=== PATIENT | male | born 1935 | race Caucasian/White ===

== ENCOUNTER 2020-06-22 09:37 | Inpatient (IN) | payer MEDICARE ==
--- NOTE | 2020-06-22 09:48 | ER Document Report ---
ED General - General Chief Complaint: Diarrhea Stated Complaint: DIARRHEA Time Seen by Provider: 06/22/20 09:47 - HPI Notes: 85-year-old male presents with diarrhea and fever. Patient states that he started to feel bad yesterday, he states that he had some vomiting and diarrhea, those have now resolved. He currently denies complaints. He denies shortness of breath or cough. He denies abdominal pain. He received Tylenol with EMS prior to arrival along with 1 L of fluids. Patient somewhat limited historian. - Related Data Allergies/Adverse Reactions: No Known Allergies Allergy (Unverified 12/15/11 11:26) Past Medical History - General Cannot obtain history due to: Altered mental status - Social History Smoking Status: Unknown if Ever Smoked Family History: Reviewed & Not Pertinent - Past Medical History Cardiac Medical History: Reports: Hx Hypertension - METOPROLOL Denies: Hx Heart Attack Pulmonary Medical History: Denies: Hx Asthma Neurological Medical History: Denies: Hx Cerebrovascular Accident, Hx Seizures GI Medical History: Denies: Hx Hepatitis, Hx Hiatal Hernia, Hx Ulcer Infectious Medical History: Denies: Hx Hepatitis Past Surgical History: Reports: Hx Cholecystectomy. Denies: Hx Open Heart Surgery, Hx Pacemaker Review of Systems - Review of Systems -: Yes ROS unobtainable due to patient's medical condition Constitutional: Fever Gastrointestinal: Diarrhea Physical Exam - Vital signs Vitals: Temp Resp Pulse Ox 102.9 F H 28 H 91 L 06/22/20 09:37 06/22/20 09:37 06/22/20 09:37 - General General appearance: Other - Ill-appearing - HEENT Head: Normocephalic, Atraumatic Extraocular movements intact: Yes Pupils: PERRL - Respiratory Respiratory status: No: Labored Chest status: Nontender Breath sounds: Rhonchi - Cardiovascular Rhythm: Tachycardia Heart sounds: Normal auscultation Normal capillary refill: Yes - Abdominal Distension: No distension Bowel sounds: Normal Tenderness: Nontender - Extremities General lower extremity: No: Edema - Neurological Neuro grossly intact: Yes Cognition: Confused Motor strength normal: LUE, RUE, LLE, RLE - Psychological Associated symptoms: Normal affect - Skin Skin Temperature: Warm Course - Re-evaluation Re-evalutation: 06/22/20 10:39 Called patient's daughter and for more information. Patient's daughter states that he had a COVID contact at [employer] a week ago and then 2 weeks prior as well. He has been feeling sick for the past few days. He has had diarrhea described as "losing everything", they have noticed coughing and some wheezing starting Tuesday. He seemed less coherent last night and was worse this morning. Patient's additionally does not feel well. 06/22/20 13:09 CT abdomen has resulted, there is no acute intra-abdominal pathology. However he does have bilateral patchy opacities at the bases. I am still highly suspecting COVID. However have ordered Rocephin and azithromycin for empiric CAP coverage. I briefly took patient off of oxygen, he had desaturations to 88% on room air, I placed him on 6 L and he increased to 92% quickly. I discussed with him need for admission. He is more coherent and alert appearing. He will be admitted under Dr. Martinez. 06/22/20 13:16 Updated daughter on admission - Vital Signs Vital signs: Temp Pulse Resp BP Pulse Ox 99.3 F 23 H 107/70 92 06/22/20 15:26 06/22/20 15:01 06/22/20 15:00 06/22/20 15:01 - Laboratory Result Diagrams: 06/22/20 09:40 06/22/20 09:40 Laboratory results interpreted by me: 06/22/20 06/22/20 06/22/20 09:40 09:40 09:40 RBC 3.71 L Hgb 12.1 L Hct 34.0 L D-Dimer Carbon Dioxide 21 L BUN 34 H Creatinine 1.71 H Est GFR ( Amer) 46 L Est GFR (MDRD) Non-Af 38 L Glucose 156 H Lactic Acid 2.2 H Calcium 8.0 L Magnesium C-Reactive Protein Total Protein 5.9 L Albumin 3.3 L 06/22/20 06/22/20 06/22/20 09:40 09:40 13:25 RBC Hgb Hct D-Dimer 0.98 H Carbon Dioxide BUN Creatinine Est GFR ( Amer) Est GFR (MDRD) Non-Af Glucose Lactic Acid Calcium Magnesium 1.4 L C-Reactive Protein 43.4 H Total Protein Albumin - Diagnostic Test Radiology reviewed: Image reviewed, Reports reviewed - EKG Interpretation by Me Additional EKG results interpreted by me: EKG is interpreted by me. Sinus arrhythmia. Premature atrial complexes. Narrow QRS. QTc within normal limits. Discharge - Discharge Clinical Impression: Suspected COVID-19 virus infection, Hypoxia Bilateral pneumonia Qualifiers: Pneumonia type: due to unspecified organism Lung location: lower lobe of lung Qualified Code(s): J18.9 - Pneumonia, unspecified organism Disposition: ADMITTED INPATIENT Admitting Provider: Juan (Hospitalist) Unit Admitted: Telemetry
[2020-06-22 10:03] LABS: VENOUS BLOOD BASE EXCESS -4.4 mmol/L; VENOUS BLOOD HCO3 20.3 mmol/L (20-32); VENOUS BLOOD PCO2 36.1 mmHg (35-63); VENOUS BLOOD PH 7.37 (7.30-7.42)
[2020-06-22 10:15] LABS: ALBUMIN 3.3 g/dL (3.5-5.0); ALKALINE PHOSPHATASE 60 U/L (38-126); ANION GAP 10 (5-19); ASPARTATE AMINO TRANSFERASE 39 U/L (17-59); BILIRUBIN,DIRECT 0.3 mg/dL (0.0-0.4); BILIRUBIN,TOTAL 0.6 mg/dL (0.2-1.3); BLOOD UREA NITROGEN 34 mg/dL (7-20); CARBON DIOXIDE 21 mmol/L (22-30); CHLORIDE 107 mmol/L (98-107); GLUCOSE 156 mg/dL (75-110); POTASSIUM 3.6 mmol/L (3.6-5.0); TOTAL PROTEIN 5.9 g/dL (6.3-8.2)
[2020-06-22] MEDS ORDERED: RINGERS SOLUTION,LACTATED 1,000 ML IV ONE (10:17)
[2020-06-22 10:19] LABS: INTERNATIONAL RATION (INR) 1.12; PROTHROMBIN TIME 14.6 SEC (11.4-15.4)
[2020-06-22 10:20] LABS: ABSOLUTE LYMPHOCYTES (AUTO) 1.3 10^3/uL (0.5-4.7); ABSOLUTE MONOCYTES (AUTO) 0.5 10^3/uL (0.1-1.4); ABSOLUTE NEUT (AUTO) 5.6 10^3/uL (1.7-8.2); BASOPHILS % (AUTO) 0.2 % (0-2); HEMOGLOBIN 12.1 g/dL (13.5-17.0); LYMPHOCYTES % (AUTO) 17.6 % (13-45); MEAN CORPUSCULAR HEMOGLOBIN 32.5 pg (27.0-33.4); MEAN CORPUSCULAR HGB CONC 35.4 g/dL (32.0-36.0); MEAN CORPUSCULAR VOLUME 92 fl (80-97); MONOCYTES % (AUTO) 6.6 % (3-13); PLATELET COUNT 219 10^3/uL (150-450); RED BLOOD COUNT 3.71 10^6/uL (4.35-5.55); RED CELL DISTRIBUTION WIDTH 13.6 % (11.5-14.0); SEGMENTED NEUTROPHILS % (AUTO) 75.6 % (42-78); TOTAL CELLS COUNTED % (AUTO) 100 %; WHITE BLOOD COUNT 7.4 10^3/uL (4.0-10.5)
--- NOTE | 2020-06-22 10:40 | EKG REPORT ---
SEVERITY:- BORDERLINE ECG - SINUS TACHYCARDIA WITH APC's LOW VOLTAGE IN FRONTAL LEADS : Confirmed by: Anabell Holly MD 22-Jun-2020 10:38:50
--- NOTE | 2020-06-22 10:50 | RADIOLOGY REPORT (SQ) ---
EXAM DESCRIPTION: CHEST SINGLE VIEW IMAGES COMPLETED DATE/TIME: 06/22/2020 10:08 am REASON FOR STUDY: cough COMPARISON: Chest radiograph 09/19/2010 NUMBER OF VIEWS: One view. TECHNIQUE: Single frontal radiographic view of the chest acquired. LIMITATIONS: None. FINDINGS: LUNGS AND PLEURA: There is mild prominence of the pulmonary vasculature, predominantly at the lung bases, and prominent Saul B-lines. Mild increased density in the retrocardiac left lower lobe. No pleural effusion or pneumothorax. MEDIASTINUM AND HILAR STRUCTURES: Cardiac silhouette at the upper limits of normal in size with a tor tuous and calcified thoracic aorta. BONES: No acute findings. HARDWARE: None in the chest. OTHER: No other significant finding. IMPRESSION: Findings likely representing mild pulmonary edema on the basis of congestive heart failu re. A superimposed infectious process at the left lung base would be difficult to exclude. Recommen d radiographic follow-up. TECHNICAL DOCUMENTATION: JOB ID: [id number] 2010 [employer]- All Rights Reserved Reading location - IP/workstation name: [email or web address]
--- NOTE | 2020-06-22 12:17 | RADIOLOGY REPORT (SQ) ---
EXAM DESCRIPTION: CT ABD/PELVIS WITH IV ONLY IMAGES COMPLETED DATE/TIME: 06/22/2020 11:43 am REASON FOR STUDY: diarrhea, eval colitis vs diverticulitis COMPARISON: None. TECHNIQUE: CT scan of the abdomen and pelvis performed with intravenous using helical scanning techn ique with dynamic intravenous contrast injection. Images reviewed with lung, soft tissue, and bone wi ndows. Reconstructed coronal and sagittal MPR images reviewed. Delayed images for evaluation of the u rinary system also acquired. All images stored on PACS. All CT scanners at this facility use dose modulation, iterative reconstruction, and/or weight based d osing when appropriate to reduce radiation dose to as low as reasonably achievable (ALARA). [facility]: Dose Right [facility]: CareDose [facility]: Dose Right [facility]: Teradose 4D [facility]: CircleCI CONTRAST TYPE AND DOSE: contrast/concentration: Isovue 300.00 mmol/ml; Total Contrast Delivered: 100 .0 ml; Total Saline Delivered: 72.0 ml RENAL FUNCTION: BUN 34; creatinine 1.71 RADIATION DOSE: CT Rad equipment meets quality standard of care and radiation dose reduction techniq ues were employed. CTDIvol: 17.6 - 20.2 mGy. DLP: 2141 mGy-cm.. LIMITATIONS: None. FINDINGS: LOWER CHEST: Small patchy areas of consolidation in the lung bases bilaterally, left great er than right. LIVER: Normal size. No masses. No dilated ducts. SPLEEN: Normal size. No focal lesions. PANCREAS: No masses. No significant calcifications. No adjacent inflammation or peripancreatic fluid collections. Pancreatic duct not dilated. GALLBLADDER: Surgically absent. ADRENAL GLANDS: No significant masses or asymmetry. RIGHT KIDNEY AND URETER: No solid masses. No significant calcification. No hydronephrosis or hydroure ter. LEFT KIDNEY AND URETER: No solid masses. No significant calcification. No hydronephrosis or hydrouret er. AORTA AND VESSELS: No aneurysm. No dissection. Renal arteries, SMA, celiac without stenosis. Moderat e calcified atherosclerotic plaque. RETROPERITONEUM: No retroperitoneal adenopathy, hemorrhage or masses. BOWEL AND PERITONEAL CAVITY: No obstruction. No visualized masses. No free fluid. Innumerable divert icula are present off the descending and sigmoid colon. No inflammatory changes or thickening of bow el wall. APPENDIX: Not visualized. PELVIS: No significant masses. Normal bladder. No free fluid. ABDOMINAL WALL: No masses. No hernias. BONES: Moderate multilevel degenerative changes are present in the visualized spine with grade 1 ante rolisthesis of L4 on L5 on the basis of facet hypertrophic changes. OTHER: No other significant finding. IMPRESSION: No acute inflammatory changes in the abdomen or pelvis. Colonic diverticulosis without CT evidence of diverticulitis Patchy areas of consolidation at the lung bases which could represent atelectasis, infection, or aspi ration. TECHNICAL DOCUMENTATION: JOB ID: [id number] Quality ID # [id number]: Final reports with documentation of one or more dose reduction techniques (e.g., Au tomated exposure control, adjustment of the mA and/or kV according to patient size, use of iterative reconstruction technique) 2010 [employer]- All Rights Reserved Reading location - IP/workstation name: [email or web address]
[2020-06-22] MEDS ORDERED: AZITHROMYCIN INJ 500 MG VIAL IV ONE ×2 (12:54→18:43)
[2020-06-22] MEDS ORDERED: CEFTRIAXONE 1 GM/D5W RTU 1 GM/50 ML RTUPB IV ONE (12:54)
[2020-06-22 14:01] LABS: APPEARANCE,URINE CLEAR; BILIRUBIN,URINE NEGATIVE (NEGATIVE); COLOR,URINE YELLOW; GLUCOSE, URINE NEGATIVE (NEGATIVE); KETONES,URINE NEGATIVE (NEGATIVE); PROTEIN,URINE 30 mg/dL (NEGATIVE); URINE SPECIFIC GRAVITY 1.053; UROBILINOGEN,URINE NEGATIVE mg/dL (<2.0)
[2020-06-22 14:09] LABS: C-REACTIVE PROTEIN 43.4 mg/L (<10.0)
[2020-06-22] MEDS ORDERED: GUAIFENESIN SYRP 200 MG/10 ML UDC PO PRN (14:12)
[2020-06-22] MEDS ORDERED: ALBUTEROL SULFATE 0.083% NEB 2.5 MG/3 ML AMPUL NEB PRN (14:12)
--- NOTE | 2020-06-22 14:27 | PDOC H&P ---
History of Present Illness Admission Date/PCP: 06/22/20 13:35 PARADISE GAINES MD Patient complains of: diarrhea History of Present Illness: BENJI BENITO is a 85 year old male the past medical history significant for hypertension, hyperlipidemia, GERD, depression who presented to the emergency department today by EMS due to report at home of confusion, fatigue, and multiple episodes of diarrhea. Evaluation in the emergency department revealed Fever (102.9), tachycardia (109), tachypnea (28), hypoxia on room air, mild anemia, mildly elevated d- dimer, acute kidney injury (CR 1.71/BUN 34), elevated lactic acid (2.2), negative urinalysis. Chest x-ray showed mild pulmonary edema with superimposed infectious process at the bases difficult to exclude. Abdominal pelvic CT found colonic diverticulosis without diverticulitis and patchy areas of consolidation of the lung bases. Patient was provided IV fluids, azithromycin and ceftriaxone, and referred to the hospitalist service for further evaluation management of the above-stated complaints and findings. Past Medical History Cardiac Medical History: Reports: Hyperlipidema, Hypertension Denies: Myocardial Infarction Pulmonary Medical History: Denies: Asthma Neurological Medical History: Denies: Seizures GI Medical History: Reports: Gastroesophageal Reflux Disease Denies: Hepatitis, Hiatal Hernia Psychiatric Medical History: Reports: Depression Hematology: Denies: Anemia, Sickle Cell Disease Past Surgical History Past Surgical History: Reports: Cholecystectomy Denies: Pacemaker Social History Information Source: [facility] Records Lives with: Spouse/Significant other Smoking Status: Unknown if Ever Smoked Family History Family History: Unable to obtain r/t mentation Parental Family History Reviewed: No Children Family History Reviewed: No Sibling(s) Family History Reviewed.: No Medication/Allergy Home Medications: Aspirin [Ecotrin 81 mg EC Tablet] 81 mg PO DAILY 12/15/11 Atorvastatin Calcium [Lipitor 40 Mg Tablet] 40 mg PO QHS 12/15/11 Bupropion HCl [Wellbutrin 100 Mg Tablet] 100 mg PO DAILY 12/15/11 Metoprolol Succinate [Toprol-Xl 50 Mg Tab.Sr] 50 mg PO 12/15/11 Omeprazole [Prilosec] 20 mg PO DAILY 12/15/11 Zolpidem Tartrate [Ambien] 10 mg PO PRN 12/15/11 Allergies/Adverse Reactions: No Known Allergies Allergy (Unverified 12/15/11 11:26) Review of Systems ROS unobtainable: Due to mental status Physical Exam Vital Signs: Temp Pulse Resp BP Pulse Ox 102.9 F H 21 H 105/59 L 95 06/22/20 09:37 06/22/20 10:01 06/22/20 10:01 06/22/20 10:01 Intake & Output 06/21/20 06/22/20 06/23/20 06:59 06:59 06:59 Intake Total 1000 Balance 1000 Weight 99.74 kg General appearance: PRESENT: no acute distress, disheveled, obese, well- developed, well-nourished, other - Acutely ill-appearing Head exam: PRESENT: atraumatic, normocephalic Eye exam: PRESENT: conjunctiva pink, EOMI, PERRLA. ABSENT: scleral icterus Mouth exam: PRESENT: dry mucosa, tongue midline Respiratory exam: PRESENT: clear to auscultation jeni, symmetrical, tachypnea, unlabored, other - Supplemental oxygen by nasal cannula. ABSENT: rales, rhonchi , wheezes Cardiovascular exam: PRESENT: RRR, +S1, +S2, tachycardia. ABSENT: diastolic murmur, rubs, systolic murmur Pulses: PRESENT: normal dorsalis pedis pul Vascular exam: PRESENT: normal capillary refill GI/Abdominal exam: PRESENT: hyperactive bowel sounds, soft. ABSENT: distended, guarding, mass, organolmegaly, rebound, tenderness Extremities exam: PRESENT: full ROM - Moves all extremities spontaneously. ABSENT: calf tenderness, clubbing, pedal edema Neurological exam: PRESENT: alert, awake, oriented to person, oriented to place, CN II-XII grossly intact, other - Intermittent periods of increased confusion, impulsivity, and poor safety awareness.. ABSENT: motor sensory deficit Skin exam: PRESENT: dry, intact, warm. ABSENT: cyanosis, rash Results Laboratory Results: 06/22/20 09:40 06/22/20 09:40 06/22/20 06/22/20 06/22/20 09:40 09:40 09:40 WBC 7.4 RBC 3.71 L Hgb 12.1 L Hct 34.0 L MCV 92 MCH 32.5 MCHC 35.4 RDW 13.6 Plt Count 219 Seg Neutrophils % 75.6 VBG pH VBG pCO2 VBG HCO3 VBG Base Excess Sodium 138.3 Potassium 3.6 Chloride 107 Carbon Dioxide 21 L Anion Gap 10 BUN 34 H Creatinine 1.71 H Est GFR ( Amer) 46 L Glucose 156 H Lactic Acid 2.2 H Calcium 8.0 L Magnesium Total Bilirubin 0.6 AST 39 Alkaline Phosphatase 60 Total Protein 5.9 L Albumin 3.3 L Urine Color Urine Appearance Urine pH Ur Specific [place] Urine Protein Urine Glucose (UA) Urine Ketones Urine Blood Urine RBC (Auto) 06/22/20 06/22/20 06/22/20 09:40 09:40 13:25 WBC RBC Hgb Hct MCV MCH MCHC RDW Plt Count Seg Neutrophils % VBG pH 7.37 VBG pCO2 36.1 VBG HCO3 20.3 VBG Base Excess -4.4 Sodium Potassium Chloride Carbon Dioxide Anion Gap BUN Creatinine Est GFR ( Amer) Glucose Lactic Acid 1.7 Calcium Magnesium 1.4 L Total Bilirubin AST Alkaline Phosphatase Total Protein Albumin Urine Color Urine Appearance Urine pH Ur Specific [place] Urine Protein Urine Glucose (UA) Urine Ketones Urine Blood Urine RBC (Auto) 06/22/20 13:35 WBC RBC Hgb Hct MCV MCH MCHC RDW Plt Count Seg Neutrophils % VBG pH VBG pCO2 VBG HCO3 VBG Base Excess Sodium Potassium Chloride Carbon Dioxide Anion Gap BUN Creatinine Est GFR ( Amer) Glucose Lactic Acid Calcium Magnesium Total Bilirubin AST Alkaline Phosphatase Total Protein Albumin Urine Color YELLOW Urine Appearance CLEAR Urine pH 5.0 Ur Specific [place] 1.053 Urine Protein 30 H Urine Glucose (UA) NEGATIVE Urine Ketones NEGATIVE Urine Blood SMALL H Urine RBC (Auto) 1 Impressions: Chest X-Ray 06/22/20 09:39 IMPRESSION: Findings likely representing mild pulmonary edema on the basis of congestive heart failure. A superimposed infectious process at the left lung base would be difficult to exclude. Recommend radiographic follow-up. Abdomen/Pelvis CT 06/22/20 10:16 IMPRESSION: No acute inflammatory changes in the abdomen or pelvis. Colonic diverticulosis without CT evidence of diverticulitis Patchy areas of consolidation at the lung bases which could represent atelectasis, infection, or aspiration. Assessment and Plan - Diagnosis (1) Sepsis Qualifiers: Sepsis type: sepsis due to unspecified organism Sepsis acute organ dysfunction status: with acute organ dysfunction Severe sepsis acute organ dysfunction type: acute renal failure Severe sepsis shock status: without septic shock Is this a current diagnosis for this admission?: Yes Plan: Patient presented to the emergency department, with sepsis, due to bilateral pneumonia, present on arrival, evidenced by acute encephalopathy, acute kidney injury elevated lactic acid, fever, tachycardia, tachypnea, hypoxia. Chest CT revealed bibasilar consolidation consistent with pneumonia. Blood, urine, stool cultures pending. Patient is admitted to [facility], on continuous cardiac telemetry and pulse oximetry. He is empirically placed on antibiotics for treatment of a community-acquired pneumonia; start azithromycin and ceftriaxone. He is receiving IV fluid bolus and is placed on generous IV fluids. (2) Bilateral pneumonia Qualifiers: Pneumonia type: due to unspecified organism Lung location: lower lobe of lung Qualified Code(s): J18.9 - Pneumonia, unspecified organism Is this a current diagnosis for this admission?: Yes Plan: Blood cultures pending. Sputum cultures pending COVID pending Patient is provided supplemental oxygen as needed maintain saturations greater than 89%. Patient is empirically placed on IV azithromycin and ceftriaxone Scheduled and as needed nebulizer treatments. He is placed on Robitussin as needed. Pulmonary toilet is encouraged with incentive spirometer, flutter valve, early ambulation. (3) Diarrhea Qualifiers: Diarrhea type: unspecified type Qualified Code(s): R19.7 - Diarrhea, unspecified Is this a current diagnosis for this admission?: Yes Plan: Blood and stool cultures pending. C. difficile negative. COVID pending. Fecal management system due to copious amounts of liquid stool incontinence in, currently, encephalopathic patient. (4) Suspected COVID-19 virus infection Is this a current diagnosis for this admission?: Yes Plan: We will obtain COVID testing. D-dimer is slightly elevated; will start full dose Lovenox. CRP minimally elevated to 43, LDH and ferritin are low. Start zinc, vitamin D, vitamin C, and melatonin supplementation. Encourage pulmonary toilet. Isolation precautions. Remaining management as above. (5) Acute metabolic encephalopathy Is this a current diagnosis for this admission?: Yes Plan: Multifactorial; secondary to all of the above. Supportive care. (6) Hyperlipemia Is this a current diagnosis for this admission?: Yes Plan: Cardiac diet. Continue home dose statin therapy. (7) Hypertension Is this a current diagnosis for this admission?: Yes Plan: Blood pressures are actually soft at the moment. Cardiac diet. Resume home dose metoprolol once indicated. - Time Time Spent with patient: 35 or more minutes Medications reviewed and adjusted accordingly: Yes Anticipated Discharge Disposition: Home with Home Health Anticipated Discharge Timeframe: >72 hrs - Inpatient Certification Based on my medical assessment, after consideration of the patient's comorbidities, presenting symptoms, or acuity I expect that the services needed warrant INPATIENT care.: Yes I certify that my determination is in accordance with my understanding of Medicare's requirements for reasonable and necessary INPATIENT services [42 CFR 412.3e].: Yes Medical Necessity: Need Close Monitoring Due to Risk of Patient Decompensation, Need For IV Fluids, Need For Continuous Telemetry Monitoring, Need for Nebulizer Therapy and Monitoring of Response, Need for IV Antibiotics, Risk of Complication if Not Cared For in Hospital
[2020-06-22 15:07] LABS: C DIFFICILE GDH NEGATIVE (NEGATIVE)
[2020-06-22] MEDS: ASCORBIC ACID 500 MG TABLET PO SCH (18:46)
[2020-06-22] MEDS: NORMAL SALINE 1000 ML 1,000 ML IV PRN (19:31)
[2020-06-22] MEDS: ALBUTEROL SULFATE 0.083% NEB 2.5 MG/3 ML AMPUL NEB SCH (20:43)
[2020-06-22] MEDS: ATORVASTATIN CALCIUM 40 MG TABLET PO SCH (21:27)
[2020-06-22] MEDS: MELATONIN 3 MG TABLET PO SCH (21:27)
[2020-06-22] MEDS ORDERED: HEPARIN SOD (PORCINE) 5,000 UNIT/ML 1 ML VIAL SUBCUT SCH (22:00)
[2020-06-23] MEDS: ALBUTEROL SULFATE 0.083% NEB 2.5 MG/3 ML AMPUL NEB SCH ×4 (01:19→20:25)
[2020-06-23] MEDS: ACETAMINOPHEN 325 MG TABLET PO PRN ×2 (03:51→21:52)
[2020-06-23 04:26] LABS: HEMATOCRIT 34.2 % (37.9-51.0); MEAN CORPUSCULAR HEMOGLOBIN 32.1 pg (27.0-33.4); MEAN CORPUSCULAR HGB CONC 35.1 g/dL (32.0-36.0); MEAN CORPUSCULAR VOLUME 91 fl (80-97); PLATELET COUNT 196 10^3/uL (150-450); RED BLOOD COUNT 3.74 10^6/uL (4.35-5.55); RED CELL DISTRIBUTION WIDTH 13.6 % (11.5-14.0)
[2020-06-23 04:52] LABS: ANION GAP 12 (5-19); BLOOD UREA NITROGEN 33 mg/dL (7-20); CALCIUM 7.8 mg/dL (8.4-10.2); CARBON DIOXIDE 21 mmol/L (22-30); CHLORIDE 105 mmol/L (98-107); GLUCOSE 95 mg/dL (75-110)
[2020-06-23 05:05] LABS: POTASSIUM 3.4 mmol/L (3.6-5.0)
[2020-06-23] MEDS: PANTOPRAZOLE SODIUM 40 MG TABLET.DR PO SCH (05:05)
[2020-06-23] MEDS: ASCORBIC ACID 500 MG TABLET PO SCH ×2 (09:37→17:14)
[2020-06-23] MEDS: ZINC SULFATE 220 MG CAPSULE PO SCH (09:37)
[2020-06-23] MEDS: CHOLECALCIFEROL (D3) 400 UNIT TABLET PO SCH (09:37)
[2020-06-23] MEDS: CEFTRIAXONE 1 GM/D5W RTU 1 GM/50 ML RTUPB IV SCH (09:37)
[2020-06-23] MEDS: NORMAL SALINE 1000 ML 1,000 ML IV PRN (09:43)
[2020-06-23] MEDS: AZITHROMYCIN 500 MG in DEXTROSE 5%-WATER 250 ML IV SCH (12:21)
--- NOTE | 2020-06-23 19:19 | PDOC PROGRESS REPORT ---
Subjective Progress Note for:: 06/23/20 Subjective:: BENJI BENITO is a 85 year old male the past medical history significant for hypertension, hyperlipidemia, GERD, depression who was admitted 06/22/2020 with Sepsis secondary to bilateral pneumonia with diarrhea and suspected COVID virus infection. Patient was seen on afternoon rounds. He is found resting in bed, comfortably, on supplemental oxygen. Per nursing, he is required increased oxygen support today though remains comfortably on 3 L/min. The patient continues to be encephalopathic, oriented to self only. He is able to talk about his and his daughter clearly though he is confused with all other questions. He does continue to pick at sheets and wants, however, is less agitated and impulsive than yesterday. Continues to wear mittens. Patient states he is feeling well and denies all symptoms. He does appear to be comfortable and is not noted to be in any acute distress at this time. No concerns per nursing. Reason For Visit: SEPSIS,COVID PUI Physical Exam Vital Signs: Temp Pulse Resp BP Pulse Ox 98.9 F 99 18 131/68 H 95 06/23/20 12:54 06/23/20 14:00 06/23/20 14:00 06/23/20 12:54 06/23/20 14:21 Pulse Oximeter Continuous Start: 06/22/20 14:12 Freq: RTQ4 Status: Active Protocol: Document 06/23/20 14:21 [facility] (Rec: 06/23/20 14:34 [facility] [id number]) Pulse Oximetry Assessment Oxygen Saturation (92-100) 95 Oxygen Flow Rate (L/min) 2 Oxygen Delivery Method Nasal Cannula Equipment Usage Equipment Standby Continuous SpO2 Machine # - Intake & Output 06/22/20 06/23/20 06/24/20 06:59 06:59 06:59 Intake Total 2310 300 Output Total 625 700 Balance 1685 -400 Weight 100.1 kg 100.1 kg General appearance: PRESENT: no acute distress, well-developed, well-nourished, other - Overweight Head exam: PRESENT: atraumatic, normocephalic Eye exam: PRESENT: conjunctiva pink, EOMI, PERRLA. ABSENT: scleral icterus Mouth exam: PRESENT: dry mucosa, tongue midline Respiratory exam: PRESENT: clear to auscultation jeni, symmetrical, unlabored, other - Supplemental oxygen. ABSENT: rales, rhonchi, tachypnea, wheezes Cardiovascular exam: PRESENT: RRR. ABSENT: diastolic murmur, rubs, systolic murmur Pulses: PRESENT: normal dorsalis pedis pul Vascular exam: PRESENT: normal capillary refill GI/Abdominal exam: PRESENT: hyperactive bowel sounds, soft, other. ABSENT: distended, guarding, mass, organolmegaly, rebound, tenderness Rectal exam: PRESENT: deferred, other - Copious amounts of diarrhea; rectal tube in place. Gentrourinary exam: PRESENT: indwelling catheter Extremities exam: PRESENT: full ROM. ABSENT: calf tenderness, clubbing, pedal edema Neurological exam: PRESENT: alert, awake, oriented to person, CN II-XII grossly intact, other - Pleasantly confused; conversational and socially appropriate. ABSENT: motor sensory deficit Psychiatric exam: PRESENT: appropriate affect, normal mood. ABSENT: homicidal ideation, suicidal ideation Skin exam: PRESENT: dry, intact, warm. ABSENT: cyanosis, rash Results Laboratory Results: 06/23/20 03:25 06/23/20 03:25 06/23/20 06/23/20 03:25 03:25 WBC 6.0 RBC 3.74 L Hgb 12.0 L Hct 34.2 L MCV 91 MCH 32.1 MCHC 35.1 RDW 13.6 Plt Count 196 Sodium 138.2 Potassium 3.4 L Chloride 105 Carbon Dioxide 21 L Anion Gap 12 BUN 33 H Creatinine 1.58 H Est GFR ( Amer) 51 L Glucose 95 Calcium 7.8 L Impressions: Chest X-Ray 06/22/20 09:39 IMPRESSION: Findings likely representing mild pulmonary edema on the basis of congestive heart failure. A superimposed infectious process at the left lung base would be difficult to exclude. Recommend radiographic follow-up. Abdomen/Pelvis CT 06/22/20 10:16 IMPRESSION: No acute inflammatory changes in the abdomen or pelvis. Colonic diverticulosis without CT evidence of diverticulitis Patchy areas of consolidation at the lung bases which could represent atelectasis, infection, or aspiration. Assessment and Plan - Diagnosis (1) Sepsis Qualifiers: Sepsis type: sepsis due to unspecified organism Sepsis acute organ dysfunction status: with acute organ dysfunction Severe sepsis acute organ dysfunction type: acute renal failure Severe sepsis shock status: without septic shock Is this a current diagnosis for this admission?: Yes Plan: Improved; fever 101 overnight, heart rate and blood pressure improved, WBC is normal, lactic acidosis has resolved. Continues to be encephalopathic with an acute kidney injury. Patient presented to the emergency department, with sepsis, due to bilateral pneumonia, present on arrival, evidenced by acute encephalopathy, acute kidney injury elevated lactic acid, fever, tachycardia, tachypnea, hypoxia. Chest CT revealed bibasilar consolidation consistent with pneumonia. Blood cultures with coag negative staph in 1 of 4 bottles. Urine culture has no growth at 1 day. Stool cultures pending. Patient is admitted to [facility], on continuous cardiac telemetry and pulse oximetry. He is empirically placed on antibiotics for treatment of a community-acquired pneumonia; continue azithromycin and ceftriaxone. Day #2 He is receiving IV fluid bolus and is placed on generous IV fluids. (2) Bilateral pneumonia Qualifiers: Pneumonia type: due to unspecified organism Lung location: lower lobe of lung Qualified Code(s): J18.9 - Pneumonia, unspecified organism Is this a current diagnosis for this admission?: Yes Plan: Cultures as above COVID pending Legionella pending Patient is provided supplemental oxygen as needed maintain saturations greater than 89%. Patient is empirically placed on IV azithromycin and ceftriaxone Scheduled and as needed nebulizer treatments. He is placed on Robitussin as needed. Pulmonary toilet is encouraged with incentive spirometer, flutter valve, early ambulation. (3) Diarrhea Qualifiers: Diarrhea type: unspecified type Qualified Code(s): R19.7 - Diarrhea, unspecified Is this a current diagnosis for this admission?: Yes Plan: Cultures as above C. difficile negative. COVID pending. Fecal management system due to copious amounts of liquid stool incontinence in, currently, encephalopathic patient. (4) Suspected COVID-19 virus infection Is this a current diagnosis for this admission?: Yes Plan: We will obtain COVID testing. D-dimer is slightly elevated; will start full dose Lovenox. CRP minimally elevated to 43, LDH and ferritin are low. Start zinc, vitamin D, vitamin C, and melatonin supplementation. Encourage pulmonary toilet. Isolation precautions. Remaining management as above. (5) Acute metabolic encephalopathy Is this a current diagnosis for this admission?: Yes Plan: Slight improvement today Multifactorial; secondary to all of the above. Supportive care. (6) Hyperlipemia Is this a current diagnosis for this admission?: Yes Plan: Cardiac diet. Continue home dose statin therapy. (7) Hypertension Is this a current diagnosis for this admission?: Yes Plan: Blood pressures are actually soft at the moment. Cardiac diet. Resume home dose metoprolol once indicated. - Time Time Spent with patient: 35 or more minutes Medications reviewed and adjusted accordingly: Yes Anticipated Discharge Disposition: Home with Home Health Anticipated Discharge Timeframe: >72 hrs
[2020-06-23] MEDS ORDERED: ACETAMINOPHEN 325 MG SUPP.RECT PR ONE (20:13)
[2020-06-23] MEDS: ATORVASTATIN CALCIUM 40 MG TABLET PO SCH (21:53)
[2020-06-23] MEDS: MELATONIN 3 MG TABLET PO SCH (21:53)
[2020-06-24] MEDS: ALBUTEROL SULFATE 0.083% NEB 2.5 MG/3 ML AMPUL NEB SCH ×5 (02:07→21:33)
[2020-06-24] MEDS: NORMAL SALINE 1000 ML 1,000 ML IV PRN (05:10)
[2020-06-24 05:11] LABS: ABSOLUTE LYMPHOCYTES (AUTO) 1.8 10^3/uL (0.5-4.7); ABSOLUTE MONOCYTES (AUTO) 0.3 10^3/uL (0.1-1.4); ABSOLUTE NEUT (AUTO) 5.1 10^3/uL (1.7-8.2); BASOPHILS % (AUTO) 0.1 % (0-2); HEMATOCRIT 37.8 % (37.9-51.0); HEMOGLOBIN 13.2 g/dL (13.5-17.0); LYMPHOCYTES % (AUTO) 24.6 % (13-45); MEAN CORPUSCULAR HEMOGLOBIN 31.9 pg (27.0-33.4); MEAN CORPUSCULAR HGB CONC 35.1 g/dL (32.0-36.0); MEAN CORPUSCULAR VOLUME 91 fl (80-97); MONOCYTES % (AUTO) 4.5 % (3-13); PLATELET COUNT 193 10^3/uL (150-450); RED BLOOD COUNT 4.14 10^6/uL (4.35-5.55); RED CELL DISTRIBUTION WIDTH 13.9 % (11.5-14.0); SEGMENTED NEUTROPHILS % (AUTO) 70.8 % (42-78); TOTAL CELLS COUNTED % (AUTO) 100 %; WHITE BLOOD COUNT 7.3 10^3/uL (4.0-10.5)
[2020-06-24] MEDS: ACETAMINOPHEN 325 MG TABLET PO PRN (05:11)
[2020-06-24] MEDS: PANTOPRAZOLE SODIUM 40 MG TABLET.DR PO SCH (05:11)
[2020-06-24 05:40] LABS: ANION GAP 9 (5-19); BLOOD UREA NITROGEN 35 mg/dL (7-20); CALCIUM 7.5 mg/dL (8.4-10.2); CARBON DIOXIDE 21 mmol/L (22-30); CHLORIDE 111 mmol/L (98-107); GLUCOSE 102 mg/dL (75-110); POTASSIUM 3.5 mmol/L (3.6-5.0)
[2020-06-24] MEDS ORDERED: NORMAL SALINE 1000 ML 1,000 ML IV PRN (08:19)
[2020-06-24] MEDS: ZINC SULFATE 220 MG CAPSULE PO SCH (09:03)
[2020-06-24] MEDS: ASCORBIC ACID 500 MG TABLET PO SCH ×2 (09:03→17:30)
[2020-06-24] MEDS: CEFTRIAXONE 1 GM/D5W RTU 1 GM/50 ML RTUPB IV SCH (09:03)
[2020-06-24] MEDS: CHOLECALCIFEROL (D3) 400 UNIT TABLET PO SCH (09:03)
[2020-06-24] MEDS ORDERED: ENOXAPARIN SODIUM INJ 40 MG/0.4 ML DISP.SYRIN SUBCUT SCH ×2 (10:00→12:00)
[2020-06-24] MEDS ORDERED: METOPROLOL TARTRATE PF/INJ 5 MG/5 ML SDV IV ONE ×3 (10:55→11:10)
[2020-06-24 11:28] LABS: ARTERIAL BLOOD BASE EXCESS -5.4 mmol/L; ARTERIAL BLOOD FIO2 100%; ARTERIAL BLOOD H2CO3 0.86 mmol/L (1.05-1.35); ARTERIAL BLOOD HCO3 17.8 mmol/L (20-24); ARTERIAL BLOOD O2 SATURATION 89.1 % (94-98); ARTERIAL BLOOD PCO2 28.5 mmHg (35-45); ARTERIAL BLOOD PH 7.41 (7.35-7.45); ARTERIAL BLOOD PO2 54.1 mmHg (80-100); ARTERIAL BLOOD TOTAL CO2 18.7 mmol/L (23-27)
[2020-06-24] MEDS ORDERED: REMDESIVIR (EUA) 200 MG in NORMAL SALINE 250 ML IV ONE (12:00)
--- NOTE | 2020-06-24 12:48 | PDOC PROGRESS REPORT ---
Subjective Progress Note for:: 06/24/20 Subjective:: Patient is an 85-year-old male with past medical history of hypertension hyperlipidemia depression and GERD who was admitted on June 22 with chief complaints of confusion fatigue and multiple episodes of diarrhea. Chest x-ray showed pneumonia and mild pulmonary edema. Patient was started on ceftriaxone and azithromycin for pneumonia. Fluids for the diarrhea. COVID testing was sent. D2 06/23/20-he continues to require oxygen via nasal cannula 3 L/min. Noted to be confused and agitated at times. Was doing well on minimal oxygen support D3 06/24/20 -patient was seen and examined at bedside. COVID test came back positive .According to the nurse he requires more oxygen today. He was changed to partial nonrebreather mask 14 L/min saturating 94%. He was noted to be on atrial fibrillation RVR, prior history of atrial fibrillation. He was started on dexamethasone 6 mg IV, as well as Remdesivir. Spoke to the and daughter Tasha [phone]. Updated them about the patients status and poor prognosis. The is the surrogate decision maker and they stated that for now they want him to remain full code but also stated that they do not want him to suffer if with no chance of recovery. Reason For Visit: SEPSIS,COVID PUI Physical Exam Vital Signs: Temp Pulse Resp BP Pulse Ox 98.4 F 91 24 H 109/55 L 89 L 06/24/20 07:46 06/24/20 09:15 06/24/20 09:15 06/24/20 03:17 06/24/20 09:15 Pulse Oximeter Continuous Start: 06/22/20 14:12 Freq: RTQ4 Status: Active Protocol: Document 06/24/20 09:15 [facility] (Rec: 06/24/20 09:47 [facility] [id number]) Additional RT Notes Other pt on nursing continous pulse oximter with tele pack. pt placed on 15 lpm partial rebreather mask. at bedside towards end of rx. Pulse Oximetry Assessment Oxygen Saturation (92-100) 89 Oxygen Flow Rate (L/min) 6 Oxygen Delivery Method Simple Mask Fraction of Inspired Oxygen (FIO2) 44 Equipment Usage Equipment Standby Continuous SpO2 Machine # on nursing monitor Intake & Output 06/23/20 06/24/20 06/25/20 06:59 06:59 06:59 Intake Total 2310 1300 Output Total 625 1700 Balance 1685 -400 Weight 100.1 kg 100 kg General appearance: PRESENT: hard of hearing, other - moderate distress, confused, mild agitation, on 14 L of nonrebreather mask Head exam: PRESENT: atraumatic, normocephalic Eye exam: PRESENT: EOMI, PERRLA Mouth exam: PRESENT: moist Neck exam: PRESENT: full ROM. ABSENT: JVD, lymphadenopathy Respiratory exam: PRESENT: crackles - mid to base, tachypnea - Labored breathing Cardiovascular exam: PRESENT: irregular rhythm, +S1, +S2, tachycardia Pulses: PRESENT: +2 pedal pulses bilateral Vascular exam: PRESENT: normal capillary refill GI/Abdominal exam: PRESENT: normal bowel sounds, soft. ABSENT: guarding, t enderness Extremities exam: PRESENT: full ROM. ABSENT: joint swelling, pedal edema Musculoskeletal exam: PRESENT: full ROM Neurological exam: PRESENT: alert, other - Confused mildly agitated Results Laboratory Results: 06/24/20 04:18 06/24/20 04:18 06/24/20 06/24/20 06/24/20 04:18 04:18 11:10 WBC 7.3 RBC 4.14 L Hgb 13.2 L Hct 37.8 L MCV 91 MCH 31.9 MCHC 35.1 RDW 13.9 Plt Count 193 Seg Neutrophils % 70.8 Carbonic Acid 0.86 L HCO3/H2CO3 Ratio 20:1 ABG pH 7.41 ABG pCO2 28.5 L ABG pO2 54.1 L ABG HCO3 17.8 L ABG O2 Saturation 89.1 L ABG Base Excess -5.4 FiO2 100% Sodium 141.4 Potassium 3.5 L Chloride 111 H Carbon Dioxide 21 L Anion Gap 9 BUN 35 H Creatinine 1.54 H Est GFR ( Amer) 52 L Glucose 102 Calcium 7.5 L 06/22/20 13:35 Catheterized Urine Urine Culture - Final NO GROWTH 2 DAYS 06/22/20 09:40 Blood Blood Culture (PCR) - Final Staphylococcus Species Impressions: Chest X-Ray 06/22/20 09:39 IMPRESSION: Findings likely representing mild pulmonary edema on the basis of congestive heart failure. A superimposed infectious process at the left lung base would be difficult to exclude. Recommend radiographic follow-up. Abdomen/Pelvis CT 06/22/20 10:16 IMPRESSION: No acute inflammatory changes in the abdomen or pelvis. Colonic diverticulosis without CT evidence of diverticulitis Patchy areas of consolidation at the lung bases which could represent atelectasis, infection, or aspiration. Assessment and Plan - Diagnosis (1) Pneumonia due to COVID-19 virus Is this a current diagnosis for this admission?: Yes (2) New onset atrial fibrillation Is this a current diagnosis for this admission?: Yes Plan: -New onset A. fib and RVR noted today, heart rate 150s -EKG showed atrial fibrillation, prior history, has a history of stroke -[id number] 3 -Start on therapeutic Lovenox -TSH, echo ordered -given 2 doses of Lopressor -cardizem if still tachycardic (3) Bilateral pneumonia Qualifiers: Pneumonia type: due to unspecified organism Lung location: lower lobe of lung Qualified Code(s): J18.9 - Pneumonia, unspecified organism Is this a current diagnosis for this admission?: Yes Plan: -COVID positive - awaiting legionella, blood and sputum culture results - continue ceftri and azithro for now - continue nebs (4) Sepsis Qualifiers: Sepsis type: sepsis due to unspecified organism Sepsis acute organ dysfunction status: with acute organ dysfunction Severe sepsis acute organ dysfunction type: acute renal failure Severe sepsis shock status: without septic shock Is this a current diagnosis for this admission?: Yes Plan: -+ve COVID - tachypnea 40, Tachycardia. - awaiting blood cx - legionella pending - continue ceftri and Azithro - started on remdesivir and dexamethasone (5) Acute metabolic encephalopathy Is this a current diagnosis for this admission?: Yes Plan: - likely 2/2 age and ongoing infection - frequent reorientation - continue to monitor. (6) Diarrhea Qualifiers: Diarrhea type: unspecified type Qualified Code(s): R19.7 - Diarrhea, unspecified Is this a current diagnosis for this admission?: Yes Plan: - still with diarrhea - likely 2/2 COVID - crea 1.58>1.54 - C.diff negative - will hold off IV fluids for now and monitor crea (7) Hypoxia Is this a current diagnosis for this admission?: Yes Plan: -increasing oxygen requirements secondary to COVID pneumonia -Currently on high flow nasal cannula -1 dose of Lasix -BNP (8) Hyperlipemia Is this a current diagnosis for this admission?: Yes Plan: Cardiac diet. Continue home dose statin therapy. (9) Hypertension Is this a current diagnosis for this admission?: Yes Plan: Blood pressures are actually soft at the moment. Cardiac diet. Resume home dose metoprolol once indicated. - Time Time Spent with patient: 35 or more minutes Medications reviewed and adjusted accordingly: Yes Anticipated Discharge Disposition: to be determined Anticipated Discharge Timeframe: to be determined
[2020-06-24] MEDS ORDERED: FUROSEMIDE INJ/PF 40 MG/4 ML SDV ONE (12:50)
[2020-06-24] MEDS ORDERED: FUROSEMIDE INJ/PF 40 MG/4 ML SDV IV ONE (13:00)
--- NOTE | 2020-06-24 13:00 | EKG REPORT ---
SEVERITY:- ABNORMAL ECG - ATRIAL FIBRILLATION WITH RAPID V-RATE BORDERLINE RIGHT AXIS DEVIATION REPOLARIZATION ABNORMALITY, PROB RATE RELATED : Confirmed by: Kaushal Preciado MD 24-Jun-2020 12:59:45
[2020-06-24] MEDS ORDERED: DILTIAZEM HCL/D5W 125 MG/125 ML RTUINJ IV ONE (14:27)
[2020-06-24] MEDS: DEXAMETHASONE SOD PHOS INJ 10 MG/1 ML VIAL IV SCH (14:59)
[2020-06-24] MEDS: AZITHROMYCIN 500 MG in DEXTROSE 5%-WATER 250 ML IV SCH (15:01)
[2020-06-24] MEDS: ENOXAPARIN SODIUM INJ 100 MG/1 ML DISP.SYRIN SUBCUT SCH (15:04)
[2020-06-24] MEDS: DILTIAZEM HCL/D5W 125 MG/125 ML RTUINJ IV PRN ×2 (15:07→23:37)
[2020-06-24] MEDS ORDERED: ACETAMINOPHEN 650 MG SUPP.RECT PR PRN (20:05)
[2020-06-24] MEDS: MORPHINE SULFATE 10 MG/ML INJ IV PRN ×2 (20:08→23:02)
[2020-06-24 20:25] LABS: ARTERIAL BLOOD BASE EXCESS -4.7 mmol/L; ARTERIAL BLOOD H2CO3 0.85 mmol/L (1.05-1.35); ARTERIAL BLOOD HCO3 18.2 mmol/L (20-24); ARTERIAL BLOOD O2 SATURATION 92.5 % (94-98); ARTERIAL BLOOD PCO2 28.3 mmHg (35-45); ARTERIAL BLOOD PH 7.43 (7.35-7.45); ARTERIAL BLOOD PO2 61.3 mmHg (80-100); ARTERIAL BLOOD TOTAL CO2 19.1 mmol/L (23-27)
[2020-06-24 20:26] LABS: ARTERIAL BLOOD FIO2 100%
[2020-06-24] MEDS: ATORVASTATIN CALCIUM 40 MG TABLET PO SCH (21:30)
[2020-06-24] MEDS: MELATONIN 3 MG TABLET PO SCH (21:30)
[2020-06-24] MEDS ORDERED: DEXTROSE 40% GEL 15 GM TUBE PO PRN ×2 (23:48)
[2020-06-24] MEDS ORDERED: GLUCAGON,HUMAN RECOMB 1 MG INJ SUBCUT PRN (23:48)
[2020-06-24] MEDS ORDERED: DEXTROSE 50%-WATER 25 GM/50 ML DISP.SYRIN IV PRN ×2 (23:48)
[2020-06-25] MEDS: MORPHINE SULFATE 10 MG/ML INJ IV PRN ×5 (01:40→22:05)
[2020-06-25] MEDS: ALBUTEROL SULFATE 0.083% NEB 2.5 MG/3 ML AMPUL NEB SCH ×4 (02:02→19:45)
[2020-06-25 05:02] LABS: ABSOLUTE LYMPHOCYTES (AUTO) 1.8 10^3/uL (0.5-4.7); ABSOLUTE MONOCYTES (AUTO) 0.4 10^3/uL (0.1-1.4); ABSOLUTE NEUT (AUTO) 7.8 10^3/uL (1.7-8.2); BASOPHILS % (AUTO) 0.1 % (0-2); HEMATOCRIT 43.4 % (37.9-51.0); LYMPHOCYTES % (AUTO) 18.2 % (13-45); MEAN CORPUSCULAR HEMOGLOBIN 31.7 pg (27.0-33.4); MEAN CORPUSCULAR HGB CONC 34.5 g/dL (32.0-36.0); MEAN CORPUSCULAR VOLUME 92 fl (80-97); MONOCYTES % (AUTO) 3.8 % (3-13); PLATELET COUNT 186 10^3/uL (150-450); RED BLOOD COUNT 4.73 10^6/uL (4.35-5.55); SEGMENTED NEUTROPHILS % (AUTO) 77.9 % (42-78); TOTAL CELLS COUNTED % (AUTO) 100 %
[2020-06-25] MEDS: PANTOPRAZOLE SODIUM 40 MG TABLET.DR PO SCH (05:24)
[2020-06-25 05:28] LABS: ALBUMIN 3.6 g/dL (3.5-5.0); ALKALINE PHOSPHATASE 94 U/L (38-126); ANION GAP 15 (5-19); ASPARTATE AMINO TRANSFERASE 238 U/L (17-59); BILIRUBIN,DIRECT 0.5 mg/dL (0.0-0.4); BILIRUBIN,TOTAL 0.7 mg/dL (0.2-1.3); BLOOD UREA NITROGEN 43 mg/dL (7-20); CALCIUM 8.1 mg/dL (8.4-10.2); CARBON DIOXIDE 21 mmol/L (22-30); CHLORIDE 109 mmol/L (98-107); GLUCOSE 151 mg/dL (75-110); POTASSIUM 3.7 mmol/L (3.6-5.0)
--- NOTE | 2020-06-25 09:00 | PDOC CONSULTATION ---
Consultation Consult Date: 06/25/20 Attending physician:: RUSTAM ARNOLD Provider Consulted: ROBERT HIDALGO Consult reason:: A-fib History of Present Illness Admission Date/PCP: 06/22/20 13:35 PARADISE GAINES MD History of Present Illness: BENJI BENITO is a 85 year old male with history of hypertension, hyperlipidemia, depression, GERD, paroxysmal atrial fibrillation, stroke approximately 3 years ago and carotid stenosis who is consulted to our service for evaluation of rapid atrial fibrillation and heart failure. The patient was admitted on 06/22/2020 w hen he presented to the emergency room with confusion, fatigue, diarrhea, fever and tachycardia. At that time his chest x-ray demonstrated mild pulmonary edema and possible pneumonia. He was given IV fluids in the emergency room for his suspected sepsis. On 06/23/2020 he was still febrile and was given more IV fluids. Later that day he developed an oxygen requirement and tested positive for COVID on 06/24/2020. His oxygen requirement increased and was put on a partial nonrebreather mask at 14 L and was found to be in rapid atrial fibrillation. Last night he was noted to have more work of breathing, was placed in the prone position on BiPAP. His blood pressure is currently at goal, he still having fevers and his fluid balance is -260 mL. His proBNP on admission was 2110. His telemetry shows well-controlled atrial fibrillation. Physical exam on 06/25/2020: GENERAL: The patient is awake however unable to talk as he is on BiPAP, he appears to be disoriented and confused. His mask was actually disconnected from the BiPAP machine at the time of my exam, I reconnected it and notified the nurses. HEENT: Normocephalic, atraumatic. Pupils equal. Sclerae anicteric. Oropharynx dry. NECK: No JVD. No carotid bruits. LUNGS: Clear to auscultation bilaterally. CARDIOVASCULAR: Mildly tachycardic, irregularly irregular rate and rhythm, normal S1 and S2 without murmurs, rubs, or gallops. PMI not displaced. EXTREMITIES: No edema, no cyanosis, no clubbing. SKIN: No lesions or rashes. MUSCULOSKELETAL: No chest tenderness to palpation. Past Medical History Cardiac Medical History: Reports: Hyperlipidema, Hypertension Denies: Myocardial Infarction Pulmonary Medical History: Denies: Asthma Neurological Medical History: Denies: Seizures GI Medical History: Reports: Gastroesophageal Reflux Disease Denies: Hepatitis, Hiatal Hernia Psychiatric Medical History: Reports: Depression Hematology: Denies: Anemia, Sickle Cell Disease Past Surgical History Past Surgical History: Reports: Cholecystectomy Denies: Pacemaker Social History Lives with: Spouse/Significant other Smoking Status: Unknown if Ever Smoked Drugs: None Family History Family History: Reviewed & Not Pertinent Parental Family History Reviewed: Yes Children Family History Reviewed: Yes Sibling(s) Family History Reviewed.: Yes Medication/Allergy Home Medications: Aspirin [Ecotrin 81 mg EC Tablet] 81 mg PO QHS 12/15/11 Atorvastatin Calcium [Lipitor 40 Mg Tablet] 40 mg PO QHS 12/15/11 Bupropion HCl [Bupropion Xl] 150 mg PO DAILY 06/23/20 Cilostazol [Pletal 100 Mg Tablet] 100 mg PO BID 06/23/20 Clopidogrel Bisulfate [Plavix 75 mg Tablet] 75 mg PO DAILY 06/23/20 Hydrochlorothiazide [Hydrodiuril 50 mg Tablet] 50 mg PO QAM 06/23/20 Omeprazole 40 mg PO BID 06/23/20 Potassium Chloride [Klor-Con 10 Meq Tablet ER] 10 meq PO QHS 06/23/20 Tamsulosin HCl [Flomax 0.4 mg Cap.sr] 0.4 mg PO QHS 06/23/20 Allergies/Adverse Reactions: No Known Allergies Allergy (Unverified 12/15/11 11:26) Physical Exam Vital Signs: Temp Pulse Resp BP Pulse Ox 99.1 F 108 H 28 H 121/65 97 06/25/20 03:23 06/25/20 04:00 06/25/20 03:38 06/25/20 04:01 06/25/20 03:38 Pulse Oximeter Continuous Start: 06/22/20 14:12 Freq: RTQ4 Status: Active Protocol: Document 06/24/20 22:05 LDI (Rec: 06/24/20 22:09 LDI [id number]) Additional RT Notes Other Pt monitored at nursuing station. Pulse Oximetry Assessment Oxygen Saturation (92-100) 91 Oxygen Delivery Method Bi-pap Fraction of Inspired Oxygen (FIO2) 100 Equipment Usage Equipment Standby Continuous SpO2 Machine # XX Intake & Output 06/23/20 06/24/20 06/25/20 06:59 06:59 06:59 Intake Total 2310 1300 730 Output Total 892 0632 3145 Balance 1685 -400 -1545 Weight 100.1 kg 100 kg 100 kg Results Laboratory Results: 06/25/20 04:29 06/25/20 04:29 06/24/20 06/24/20 06/24/20 04:18 11:10 20:03 WBC RBC Hgb Hct MCV MCH MCHC RDW Plt Count Seg Neutrophils % Carbonic Acid 0.86 L 0.85 L HCO3/H2CO3 Ratio 20:1 21:1 ABG pH 7.41 7.43 ABG pCO2 28.5 L 28.3 L ABG pO2 54.1 L 61.3 L ABG HCO3 17.8 L 18.2 L ABG O2 Saturation 89.1 L 92.5 L ABG Base Excess -5.4 -4.7 FiO2 100% 100% Sodium Potassium Chloride Carbon Dioxide Anion Gap BUN Creatinine Est GFR ( Amer) Glucose Calcium Total Bilirubin AST Alkaline Phosphatase Total Protein Albumin TSH 1.63 06/25/20 06/25/20 04:29 04:29 WBC 10.0 RBC 4.73 Hgb 15.0 Hct 43.4 MCV 92 MCH 31.7 MCHC 34.5 RDW 14.0 Plt Count 186 Seg Neutrophils % 77.9 Carbonic Acid HCO3/H2CO3 Ratio ABG pH ABG pCO2 ABG pO2 ABG HCO3 ABG O2 Saturation ABG Base Excess FiO2 Sodium 144.7 Potassium 3.7 Chloride 109 H Carbon Dioxide 21 L Anion Gap 15 BUN 43 H Creatinine 1.89 H Est GFR ( Amer) 41 L Glucose 151 H Calcium 8.1 L Total Bilirubin 0.7 AST 238 H Alkaline Phosphatase 94 Total Protein 7.0 Albumin 3.6 TSH 06/22/20 13:35 Catheterized Urine Legionella Urinary Antigen - Final 06/22/20 13:35 Catheterized Urine Urine Culture - Final NO GROWTH 2 DAYS 06/22/20 09:40 Blood Blood Culture (PCR) - Final Staphylococcus Species 06/24/20 04:18 NT-Pro-B Natriuret Pep 2110 H Impressions: Chest X-Ray 06/22/20 09:39 IMPRESSION: Findings likely representing mild pulmonary edema on the basis of congestive heart failure. A superimposed infectious process at the left lung base would be difficult to exclude. Recommend radiographic follow-up. Abdomen/Pelvis CT 06/22/20 10:16 IMPRESSION: No acute inflammatory changes in the abdomen or pelvis. Colonic diverticulosis without CT evidence of diverticulitis Patchy areas of consolidation at the lung bases which could represent atelectasis, infection, or aspiration. 06/25/20 04:29 06/25/20 04:29 MCV 92 fl (80-97) 06/25/20 04:29 MCH 31.7 pg (27.0-33.4) 06/25/20 04:29 MCHC 34.5 g/dL (32.0-36.0) 06/25/20 04:29 RDW 14.0 % (11.5-14.0) 06/25/20 04:29 Seg Neutrophils % 77.9 % (42-78) 06/25/20 04:29 Carbonic Acid 0.85 mmol/L (1.05-1.35) L 06/24/20 20:03 HCO3/H2CO3 Ratio 21:1 06/24/20 20:03 ABG pH 7.43 (7.35-7.45) 06/24/20 20:03 ABG pCO2 28.3 mmHg (35-45) L 06/24/20 20:03 ABG pO2 61.3 mmHg (80-100) L 06/24/20 20:03 ABG HCO3 18.2 mmol/L (20-24) L 06/24/20 20:03 ABG O2 Saturation 92.5 % (94-98) L 06/24/20 20:03 ABG Base Excess -4.7 mmol/L 06/24/20 20:03 VBG pH 7.37 (7.30-7.42) 06/22/20 09:40 VBG pCO2 36.1 mmHg (35-63) 06/22/20 09:40 VBG HCO3 20.3 mmol/L (20-32) 06/22/20 09:40 VBG Base Excess -4.4 mmol/L 06/22/20 09:40 FiO2 100% 06/24/20 20:03 Chloride 109 mmol/L (98-107) H 06/25/20 04:29 Carbon Dioxide 21 mmol/L (22-30) L 06/25/20 04:29 Anion Gap 15 (5-19) 06/25/20 04:29 Est GFR ( Amer) 41 (>60) L 06/25/20 04:29 Glucose 151 mg/dL (75-110) H 06/25/20 04:29 Lactic Acid 1.4 mmol/L (0.7-2.1) 06/22/20 15:10 Calcium 8.1 mg/dL (8.4-10.2) L 06/25/20 04:29 Magnesium 1.4 mg/dL (1.6-2.3) L 06/22/20 09:40 Ferritin 237.00 ng/mL (17.9-464.0) 06/22/20 13:25 Total Bilirubin 0.7 mg/dL (0.2-1.3) 06/25/20 04:29 AST 238 U/L (17-59) H 06/25/20 04:29 Alkaline Phosphatase 94 U/L (38-126) 06/25/20 04:29 C-Reactive Protein 43.4 mg/L (<10.0) H 06/22/20 13:25 Total Protein 7.0 g/dL (6.3-8.2) 06/25/20 04:29 Albumin 3.6 g/dL (3.5-5.0) 06/25/20 04:29 TSH 1.63 uIU/mL (0.47-4.68) 06/24/20 04:18 Urine Color YELLOW 06/22/20 13:35 Urine Appearance CLEAR 06/22/20 13:35 Urine pH 5.0 (5.0-9.0) 06/22/20 13:35 Ur Specific Stuart 1.053 06/22/20 13:35 Urine Protein 30 mg/dL (NEGATIVE) H 06/22/20 13:35 Urine Glucose (UA) NEGATIVE mg/dL (NEGATIVE) 06/22/20 13:35 Urine Ketones NEGATIVE mg/dL (NEGATIVE) 06/22/20 13:35 Urine Blood SMALL (NEGATIVE) H 06/22/20 13:35 Urine RBC (Auto) 1 /HPF 06/22/20 13:35 06/22/20 13:35 Catheterized Urine Legionella Urinary Antigen - Final 06/22/20 13:35 Catheterized Urine Urine Culture - Final NO GROWTH 2 DAYS 06/22/20 09:40 Blood Blood Culture (PCR) - Final Staphylococcus Species 09/01/20 04:18 NT-Pro-B Natriuret Pep 2110 H Current Medication List Generic Name Dose Route Start Last Admin Trade Name Freq PRN Reason Stop Dose Admin Acetaminophen 650 mg 06/24/20 20:05 06/24/20 20:16 Tylenol 650 Mg Supp IN 07/24/20 20:04 650 mg Q4HP PRN Administration FOR PAIN OR TEMP Albuterol 2.5 mg 06/22/20 20:00 06/25/20 02:02 Ventolin 0.083% Neb 2.5 Mg/3 Ml Ampul NEB 07/22/20 19:59 2.5 mg RTQ6 ZOE Administration Albuterol 2.5 mg 06/22/20 14:12 06/24/20 04:47 Ventolin 0.083% Neb 2.5 Mg/3 Ml Ampul NEB 07/22/20 14:11 2.5 mg RTQ2HP PRN Administration SHORTNESS OF BREATH Ascorbic Acid 500 mg 06/22/20 18:00 06/24/20 17:30 Vitamin C 500 Mg Tablet PO 07/22/20 17:59 500 mg BID ZOE Administration Atorvastatin Calcium 40 mg 06/22/20 22:00 06/24/20 21:30 Lipitor 40 Mg Tablet PO 07/22/20 21:59 Not Given QHS OZE Cholecalciferol 400 unit 06/23/20 10:00 06/24/20 09:03 Vitamin D3 400 Unit Tablet PO 07/23/20 09:59 400 unit DAILY ZOE Administration Dexamethasone Sodium Phosphate 6 mg 06/24/20 10:00 06/24/20 14:59 Decadron Inj 10 Mg/1 Ml Vial IV 07/03/20 10:01 6 mg DAILY ZOE Administration Dextrose 12.5 gm 06/24/20 23:48 Dextrose Inj 50% Syringe (25 Gm/50 Ml) IV 07/24/20 23:47 PRN PRN FOR BG 50-69 IN ALERT PATIENT Protocol Dextrose 25 gm 06/24/20 23:48 Dextrose Inj 50% Syringe (25 Gm/50 Ml) IV 07/24/20 23:47 PRN PRN See Label Comments Protocol Enoxaparin Sodium 90 mg 06/24/20 13:00 06/24/20 15:04 Lovenox Inj 100 Mg/1 Ml Disp.Syrin SUBCUT 07/24/20 12:59 90 mg DAILY ZOE Administration Glucagon 1 mg 06/24/20 23:48 Glucagen Inj 1 Mg Vial SUBCUT 07/24/20 23:47 PRN PRN Evaluate for BG < 70 Protocol Glucose 15 gm 06/24/20 23:48 Glutose 40% Gel 15 Gm Tube PO 07/24/20 23:47 PRN PRN For BG 50-69 in Alert Patient Protocol Glucose 30 gm 06/24/20 23:48 Glutose 40% Gel 15 Gm Tube PO 07/24/20 23:47 PRN PRN FOR BG < 50 IN ALERT PATIENT Protocol Guaifenesin 200 mg 06/22/20 14:12 Robitussin Syrup 200 Mg/10 Ml Ud Cup PO 07/22/20 14:11 QIDP PRN COUGH Ceftriaxone Sodium/Dextrose 1 gm in 50 mls @ 100 mls/hr 06/23/20 10:00 06/24/20 19:37 Rocephin Rtu 1 Gm/D5w 50 Ml Premix IV 06/30/20 09:59 Infused DAILY ZOE Infusion Azithromycin 500 mg/ Dextrose 250 mls @ 250 mls/hr 06/23/20 12:00 06/24/20 19:37 IV 06/30/20 11:59 Infused NOON ZOE Infusion Remdesivir 100 mg/ Sodium 250 mls @ 250 mls/hr 06/25/20 10:00 Chloride IV 07/25/20 09:59 DAILY ZOE Diltiazem HCl 125 mg in 125 mls @ 0 mls/hr 06/24/20 12:49 06/25/20 05:38 Cardizem Rtu Inj 125 Mg-D5w 125 Ml Premix IV 07/24/20 12:48 10 mls/hr CONTINUOUS PRN 10 mls/hr THIS MED IS NOT "PRN" Titration Protocol Titrate Melatonin 6 mg 06/22/20 22:00 06/24/20 21:30 Melatonin 3 Mg Tablet PO 07/22/20 21:59 Not Given QHS ZOE Morphine Sulfate 4 mg 06/24/20 20:30 06/25/20 05:28 Morphine 10 Mg/Ml Inj IV 07/01/20 20:29 4 mg Q2HP PRN Administration FOR PAIN/ RESP DISTRESS Pantoprazole Sodium 40 mg 06/23/20 06:00 06/25/20 05:[address] Tablet PO 07/23/20 05:59 Not Given Q6AM ZOE Sodium Chloride 2.5 ml 06/22/20 14:00 06/25/20 05:24 Saline Flush 2.5 Ml Monoject Prefil Syrin IV 07/22/20 13:59 2.5 ml Q8 ZOE Administration Zinc Sulfate 220 mg 06/23/20 10:00 06/24/20 09:03 Zinc-220 Capsule PO 07/23/20 09:59 220 mg DAILY ZOE Administration Discontinued Medications Generic Name Dose Route Start Last Admin Trade Name Freq PRN Reason Stop Dose Admin Acetaminophen 650 mg 06/22/20 14:12 06/24/20 05:11 Tylenol 325 Mg Tablet PO 07/22/20 14:11 650 mg Q4HP PRN Administration FOR PAIN OR TEMP Acetaminophen Confirm 06/23/20 20:13 06/23/20 21:54 Tylenol 325 Mg Supp Administered 06/23/20 20:14 Not Given Dose 325 mg IN .STK-MED ONE Azithromycin 500 mg 06/22/20 12:54 06/22/20 19:28 Zithromax Inj 500 Mg Vial IV 06/22/20 12:55 500 mg IVBAG (ED) ONE Administration Azithromycin Confirm 06/22/20 18:43 06/22/20 19:31 Zithromax Inj 500 Mg Vial Administered 06/22/20 18:44 Not Given Dose 500 mg IV .STK-MED ONE Enoxaparin Sodium 40 mg 06/24/20 10:00 Lovenox Inj 40 Mg/0.4 Ml Disp.Syrin SUBCUT 07/24/20 09:59 DAILY ZOE Furosemide 40 mg 06/24/20 13:00 06/24/20 15:02 Lasix Inj/Pf 40 Mg/4 Ml Sdv IV 06/24/20 13:01 40 mg NOW ONE Administration Furosemide Confirm 06/24/20 12:50 06/24/20 15:01 Lasix Inj/Pf 40 Mg/4 Ml Sdv Administered 06/24/20 12:51 Not Given Dose 40 mg .ROUTE .STK-MED ONE Heparin Sodium (Porcine) 5,000 unit 06/22/20 22:00 Heparin Inj 5,000 Units/Ml 1 Ml Vial SUBCUT 07/22/20 21:59 Q8 [facility] Lactated Ringer's 1,000 mls @ 0 mls/hr 06/22/20 10:17 06/22/20 12:16 Lactated Ringers 1000 Ml Iv Soln IV 06/22/20 10:18 Infused BOLUS ONE Infusion Wide Open Ceftriaxone Sodium/Dextrose 1 gm in 50 mls @ 100 mls/hr 06/22/20 12:54 15:58 Rocephin Rtu 1 Gm/D5w 50 Ml Premix IV 06/22/20 13:23 Infused NOW ONE Infusion Sodium Chloride 1,000 mls @ 100 mls/hr 06/22/20 14:12 06/24/20 05:10 Nacl 0.9% 1000 Ml Iv Soln IV 07/22/20 14:11 100 mls/hr CONTINUOUS PRN Administration THIS MED IS NOT "PRN" Sodium Chloride 1,000 mls @ 70 mls/hr 06/24/20 08:19 06/24/20 09:04 Nacl 0.9% 1000 Ml Iv Soln IV 07/22/20 14:11 70 mls/hr CONTINUOUS PRN Administration THIS MED IS NOT "PRN" Remdesivir 200 mg/ Sodium 250 mls @ 250 mls/hr 06/24/20 12:00 06/24/20 19:38 Chloride IV 06/24/20 12:59 Infused NOW ONE Infusion Diltiazem HCl Confirm 06/24/20 14:27 06/24/20 15:07 Cardizem Rtu Inj 125 Mg-D5w 125 Ml Premix Administered 06/24/20 14:28 Not Given Dose 125 mg in 125 mls @ ud IV .STK-MED ONE Metoprolol Tartrate Confirm 06/24/20 10:55 06/24/20 14:59 Lopressor Inj/Pf 5 Mg/5 Ml Sdv Administered 06/24/20 10:56 Not Given Dose 5 mg IV .STK-MED ONE Metoprolol Tartrate 5 mg 06/24/20 11:07 06/24/20 15:00 Lopressor Inj/Pf 5 Mg/5 Ml Sdv IV 06/24/20 11:08 Not Given NOW ONE Metoprolol Tartrate Confirm 06/24/20 11:10 06/24/20 15:00 Lopressor Inj/Pf 5 Mg/5 Ml Sdv Administered 06/24/20 11:11 Not Given Dose 5 mg IV .STK-MED ONE Assessment & Plan - Diagnosis (1) New onset atrial fibrillation Is this a current diagnosis for this admission?: Yes Plan: The patient is critically ill, and his atrial fibrillation is secondary to his sepsis from COVID-19/ pneumonia. His rate is well controlled on the current regimen however he was fluid overloaded with mild pulmonary edema on admission therefore all unnecessary fluids should be avoided. At this time I believe his diltiazem drip can be decreased. Recommendations: -May start weaning off diltiazem drip. -Full anticoagulation with Lovenox. -Cardiology does not have further recommendations therefore we will sign off the case for now. Please reconsult if clinically indicated. (2) Pulmonary edema Plan: His lungs are actually clear to auscultation at the time of my exam. Currently the patient is critically ill and therefore not a candidate for any kind of invasive cardiovascular testing. Any noninvasive testing could also give us false positive results therefore I recommend medical management based on clinical status. Luckily enough, his fluid balance is -260 mL at the time of my exam. May proceed with echocardiography once his clinical status is improved.
--- NOTE | 2020-06-25 09:54 | RADIOLOGY REPORT (SQ) ---
EXAM DESCRIPTION: CHEST SINGLE VIEW IMAGES COMPLETED DATE/TIME: 06/25/2020 9:30 am REASON FOR STUDY: increased O2 needs COMPARISON: AP view of the chest from 06/22/2020. EXAM PARAMETERS: NUMBER OF VIEWS: One view. TECHNIQUE: An AP view of the chest was obtained. RADIATION DOSE: NA LIMITATIONS: None. FINDINGS: LUNGS AND PLEURA: Increased diffuse bilateral alveolar opacities. MEDIASTINUM AND HILAR STRUCTURES: Stable mediastinal and hilar contours. HEART AND VASCULAR STRUCTURES: Stable enlarged cardiac silhouette. BONES: No acute findings. HARDWARE: None in the chest. OTHER: No other finding. IMPRESSION: Increased diffuse bilateral alveolar opacities. Differential considerations include pul monary edema, ARDS and multifocal pneumonia. TECHNICAL DOCUMENTATION: JOB ID: [id number] 2010 [employer]- All Rights Reserved Reading location - IP/workstation name: [email or web address]
[2020-06-25] MEDS ORDERED: REMDESIVIR (EUA) 200 MG in NORMAL SALINE 250 ML IV ONE (10:00)
[2020-06-25] MEDS ORDERED: REMDESIVIR (EUA) 100 MG in NORMAL SALINE 250 ML IV SCH (10:00)
[2020-06-25 11:14] LABS: ARTERIAL BLOOD BASE EXCESS -7.4 mmol/L; ARTERIAL BLOOD FIO2 100%; ARTERIAL BLOOD H2CO3 0.84 mmol/L (1.05-1.35); ARTERIAL BLOOD HCO3 16.2 mmol/L (20-24); ARTERIAL BLOOD PH 7.38 (7.35-7.45); ARTERIAL BLOOD PO2 53.8 mmHg (80-100)
[2020-06-25] MEDS: AZITHROMYCIN 500 MG in DEXTROSE 5%-WATER 250 ML IV SCH (13:57)
[2020-06-25] MEDS: DEXAMETHASONE SOD PHOS INJ 10 MG/1 ML VIAL IV SCH (13:57)
[2020-06-25] MEDS: ASCORBIC ACID 500 MG TABLET PO SCH ×2 (13:59→17:18)
[2020-06-25] MEDS: CEFTRIAXONE 1 GM/D5W RTU 1 GM/50 ML RTUPB IV SCH (13:59)
[2020-06-25] MEDS: ENOXAPARIN SODIUM INJ 100 MG/1 ML DISP.SYRIN SUBCUT SCH (13:59)
[2020-06-25] MEDS: ZINC SULFATE 220 MG CAPSULE PO SCH (14:00)
[2020-06-25] MEDS: CHOLECALCIFEROL (D3) 400 UNIT TABLET PO SCH (14:00)
--- NOTE | 2020-06-25 15:32 | ADVANCED CARE ---
- Diagnosis (2) New onset atrial fibrillation Diagnosis Current: Yes (3) Bilateral pneumonia Diagnosis Current: Yes (4) Sepsis Diagnosis Current: Yes (5) Acute metabolic encephalopathy Diagnosis Current: Yes (6) Diarrhea Diagnosis Current: Yes (7) Hypoxia Diagnosis Current: Yes (8) Hyperlipemia Diagnosis Current: Yes (9) Hypertension Diagnosis Current: Yes Attendance: Daughter Tasha and Breonna with me. Discussion made over the phone on speaker Resuscitation Status: Do not resuscitate Discussion: I was able to update the patients Breonna and daughter Tasha over the phone (on speaker mode). The patient has not appointed a HCPOA but his Breonna is acting as the surrogate decision maker. I updated them about the patients clinical status. I informed them that his breathing has gotten worse since yesterday with increasing O2 needs. He has also developed new onset atrial fibrillation which is likely from the COVID pneumonia. I informed them that he is at the point where he would need assistance with mechanical ventilation and prognosis is very poor considering his age, obesity and co-morbidities. Breonna and Tasha stated that they would not want Javon to suffer and they do not want him Intubated. They also stated that they do not want CPR done and "we will let nature take its course, we do not want him to suffer". I explained to them the consequence of this choice and they understood and accept the risks which includes . They however asked that all other ongoing treatments be continued including O2 support via BIPAP, remdesivir and dexamethasone. They requested to see him or be able to visit him. I asked his nurse to reach out to patient advocate to arrange. Care Planning Goals: CODE status changed to DNR/DNI. Continue O2 support via bipap, remdesivir and dexa with other treatments. Document(s) Completed: no document completed. Time Spent: 30 minutes
--- NOTE | 2020-06-25 16:08 | PDOC PROGRESS REPORT ---
Subjective Progress Note for:: 06/25/20 Subjective:: Patient is an 85-year-old male with past medical history of hypertension hyperlipidemia depression and GERD who was admitted on June 22 with chief complaints of confusion fatigue and multiple episodes of diarrhea. Chest x-ray showed pneumonia and mild pulmonary edema. Patient was started on ceftriaxone and azithromycin for pneumonia. Fluids for the diarrhea. COVID testing was sent. D2 06/23/20-he continues to require oxygen via nasal cannula 3 L/min. Noted to be confused and agitated at times. Was doing well on minimal oxygen support D3 06/24/20 -patient was seen and examined at bedside. COVID test came back positive .According to the nurse he requires more oxygen today. He was changed to partial nonrebreather mask 14 L/min saturating 94%. He was noted to be on atrial fibrillation RVR, prior history of atrial fibrillation. He was started on dexamethasone 6 mg IV, as well as Remdesivir. Spoke to the and daughter Tasha [phone]. Updated them about the patients status and poor prognosis. The is the surrogate decision maker and they stated that for now they want him to remain full code but also stated that they do not want him to suffer if with no chance of recovery. D4 06/25/20 - Patient was seen and examined at bedside. He is noted to be more tachypneic and desaturating on 100% BIPAP. He was able to prone initially with improvement of saturation but would desaturate again after a few hours. He continued to be tachycardic despite cardizem drip which was eventually stopped due to hypotension. Repeat CXR showed progression of bilateral infiltrates. Dr. Garcia saw him and recommend to continue current management and avoid fluid overload. I discussed his condition and prognosis with his steff and daughter tasha. I stated that he would need intubation and mechanical ventilation soon and that his prognosis is poor. They stated that they do not want him to suffer and do not want him intubated or resuscitated if he has cardiac arrest. They however want to continue current treatments with remesivir, o2 support. Reason For Visit: SEPSIS,COVID PUI Physical Exam Vital Signs: Temp Pulse Resp BP Pulse Ox 99.1 F 125 H 23 H 122/65 88 L 06/25/20 08:45 06/25/20 14:00 06/25/20 15:23 06/25/20 09:00 06/25/20 15:23 Pulse Oximeter Continuous Start: 06/22/20 14:12 Freq: RTQ4 Status: Complete Protocol: Document 06/24/20 22:05 LDI (Rec: 06/24/20 22:09 LDI [id number]) Additional RT Notes Other Pt monitored at nursuing station. Pulse Oximetry Assessment Oxygen Saturation (92-100) 91 Oxygen Delivery Method Bi-pap Fraction of Inspired Oxygen (FIO2) 100 Equipment Usage Equipment Standby Continuous SpO2 Machine # XX Intake & Output 06/24/20 06/25/20 06/26/20 06:59 06:59 06:59 Intake Total 1300 730 Output Total 1700 2600 Balance -400 -1870 Weight 100 kg 100 kg General appearance: PRESENT: hard of hearing, severe distress Head exam: PRESENT: atraumatic, normocephalic Eye exam: PRESENT: EOMI, PERRLA Ear exam: PRESENT: normal external ear exam Mouth exam: PRESENT: moist Neck exam: PRESENT: full ROM. ABSENT: JVD Respiratory exam: PRESENT: accessory muscle use, crackles, rhonchi, tachypnea, wheezes Cardiovascular exam: PRESENT: irregular rhythm, +S1, +S2, tachycardia. ABSENT: diastolic murmur, systolic murmur Pulses: PRESENT: +2 pedal pulses bilateral Vascular exam: PRESENT: normal capillary refill GI/Abdominal exam: PRESENT: normal bowel sounds Rectal exam: PRESENT: deferred Extremities exam: PRESENT: full ROM. ABSENT: +2 edema Musculoskeletal exam: PRESENT: full ROM Neurological exam: PRESENT: other - agitated and confused Skin exam: PRESENT: normal color Results Laboratory Results: 06/25/20 04:29 06/25/20 04:29 06/24/20 06/25/20 06/25/20 20:03 04:29 04:29 WBC 10.0 RBC 4.73 Hgb 15.0 Hct 43.4 MCV 92 MCH 31.7 MCHC 34.5 RDW 14.0 Plt Count 186 Seg Neutrophils % 77.9 Carbonic Acid 0.85 L HCO3/H2CO3 Ratio 21:1 ABG pH 7.43 ABG pCO2 28.3 L ABG pO2 61.3 L ABG HCO3 18.2 L ABG O2 Saturation 92.5 L ABG Base Excess -4.7 FiO2 100% Sodium 144.7 Potassium 3.7 Chloride 109 H Carbon Dioxide 21 L Anion Gap 15 BUN 43 H Creatinine 1.89 H Est GFR ( Amer) 41 L Glucose 151 H Calcium 8.1 L Total Bilirubin 0.7 AST 238 H Alkaline Phosphatase 94 Total Protein 7.0 Albumin 3.6 06/25/20 10:47 WBC RBC Hgb Hct MCV MCH MCHC RDW Plt Count Seg Neutrophils % Carbonic Acid 0.84 L HCO3/H2CO3 Ratio 19:1 ABG pH 7.38 ABG pCO2 28.0 L ABG pO2 53.8 L ABG HCO3 16.2 L ABG O2 Saturation 88.0 L ABG Base Excess -7.4 FiO2 100% Sodium Potassium Chloride Carbon Dioxide Anion Gap BUN Creatinine Est GFR ( Amer) Glucose Calcium Total Bilirubin AST Alkaline Phosphatase Total Protein Albumin 06/22/20 09:40 Blood Blood Culture (PCR) - Final Staphylococcus Species 06/22/20 13:35 Stool - Stool - Final 06/22/20 13:35 Stool - Stool Stool Culture - Final NO SALMONELLA, SHIGELLA, CAMPYLOBACTER, OR E.COLI 0157 RECOVERED. NEGATIVE FOR SHIGA TOXINS 1&2. 06/22/20 13:35 Catheterized Urine Legionella Urinary Antigen - Final 06/24/20 04:18 NT-Pro-B Natriuret Pep 2110 H Impressions: Abdomen/Pelvis CT 06/22/20 10:16 IMPRESSION: No acute inflammatory changes in the abdomen or pelvis. Colonic diverticulosis without CT evidence of diverticulitis Patchy areas of consolidation at the lung bases which could represent atelectasis, infection, or aspiration. Chest X-Ray 06/25/20 00:00 IMPRESSION: Increased diffuse bilateral alveolar opacities. Differential considerations include pulmonary edema, ARDS and multifocal pneumonia. Assessment and Plan - Diagnosis (1) Acute respiratory failure with hypoxia Is this a current diagnosis for this admission?: Yes Plan: - worsening respiratory status. desaturating in BIPAP 100% FIO2 - repeat CXR diffuse bilateral alveolar opacities - PO2 53.8% on ABG 100% FIO2 bipap - spoke to family (surrogate) and daughter who opted for DNR/DNI - code status changed - continue O2 support via bipap - continue neb treatments - high risk of mortality (2) Pneumonia due to COVID-19 virus Is this a current diagnosis for this admission?: Yes Plan: - COVID positive - progression of bilateral lung infiltrates with increasing O2 needs - hypoxemia on ABG - CRP, Ferritin elevated- will repeat tomorrow - continue Remdesivir d1, dexamethasone D2 - continue O2 support via bipap (3) New onset atrial fibrillation Is this a current diagnosis for this admission?: Yes Plan: -New onset A. fib and RVR noted, heart rate 150s -EKG showed atrial fibrillation, prior history, has a history of stroke -[id number] 3 -on therapeutic Lovenox -TSH normal, echo pending -initially on cardizem drip with good HR control but currently on hold due to hypotension -resume cardizem if BP permits otherwise would consider digoxin for HR control (4) Bilateral pneumonia Qualifiers: Pneumonia type: due to unspecified organism Lung location: lower lobe of lung Qualified Code(s): J18.9 - Pneumonia, unspecified organism Is this a current diagnosis for this admission?: Yes Plan: -COVID positive - legionella negative, blood cx no growth x 72 hrs - stopped rocephin and azithro - continue remdesivir and dexa - O2 support via bipap (5) Sepsis Qualifiers: Sepsis type: sepsis due to unspecified organism Sepsis acute organ dysfunction status: with acute organ dysfunction Severe sepsis acute organ dysfunction type: acute renal failure Severe sepsis shock status: without septic shock Is this a current diagnosis for this admission?: Yes Plan: -+ve COVID 19 as source of sepsis - tachypnea 40, Tachycardia. - blood culture negative x 3 - legionella negative - abx discontinued - on remdesivir and dexamethasone - poor prognosis in light of co morbidities (6) Acute metabolic encephalopathy Is this a current diagnosis for this admission?: Yes Plan: - likely 2/2 age, hypoxia and ongoing infection - o2 support - frequent reorientation - continue to monitor. (7) Diarrhea Qualifiers: Diarrhea type: unspecified type Qualified Code(s): R19.7 - Diarrhea, unspecified Is this a current diagnosis for this admission?: Yes (8) Hyperlipemia Is this a current diagnosis for this admission?: Yes (9) Hypertension Is this a current diagnosis for this admission?: Yes Plan: - currently with hypotensive episodes - will monitor (10) ANYA (acute kidney injury) Is this a current diagnosis for this admission?: Yes Plan: - crea 1.71>1.89 in the setting of COVID 19 - adequate output - will not treat with IV fluids given bilateral infiltrates - continue to monitor with daily CMP (11) Elevated brain natriuretic peptide (BNP) level Is this a current diagnosis for this admission?: Yes Plan: - BNP 0, no prior hx of CHF but with HTN, HLD - CXR showing bilateral infilatrates - ddx. CHF vs fluid overload - given 1 dose of lasix - continue to monitor - Time Time Spent with patient: 35 or more minutes Medications reviewed and adjusted accordingly: Yes Anticipated Discharge Disposition: to be determined Anticipated Discharge Timeframe: to be determined
[2020-06-25] MEDS: ATORVASTATIN CALCIUM 40 MG TABLET PO SCH (21:56)
[2020-06-25] MEDS: MELATONIN 3 MG TABLET PO SCH (21:56)
[2020-06-25] MEDS: ASPIRIN 81 MG TABLET, ENT COATED PO SCH (21:57)
[2020-06-26] MEDS: MORPHINE SULFATE 10 MG/ML INJ IV PRN ×5 (00:57→22:15)
[2020-06-26] MEDS: ALBUTEROL SULFATE 0.083% NEB 2.5 MG/3 ML AMPUL NEB SCH ×4 (02:15→20:16)
[2020-06-26] MEDS: METOPROLOL TARTRATE PF/INJ 5 MG/5 ML SDV IV PRN (03:14)
[2020-06-26 05:01] LABS: ABSOLUTE LYMPHOCYTES (AUTO) 1.4 10^3/uL (0.5-4.7); ABSOLUTE MONOCYTES (AUTO) 0.5 10^3/uL (0.1-1.4); ABSOLUTE NEUT (AUTO) 7.5 10^3/uL (1.7-8.2); BASOPHILS % (AUTO) 0.1 % (0-2); EOSINOPHILS % (AUTO) 0.1 % (0-6); HEMATOCRIT 42.7 % (37.9-51.0); HEMOGLOBIN 15.1 g/dL (13.5-17.0); LYMPHOCYTES % (AUTO) 14.7 % (13-45); MEAN CORPUSCULAR HEMOGLOBIN 32.1 pg (27.0-33.4); MEAN CORPUSCULAR HGB CONC 35.3 g/dL (32.0-36.0); MEAN CORPUSCULAR VOLUME 91 fl (80-97); MONOCYTES % (AUTO) 5.2 % (3-13); PLATELET COUNT 184 10^3/uL (150-450); RED CELL DISTRIBUTION WIDTH 13.9 % (11.5-14.0); SEGMENTED NEUTROPHILS % (AUTO) 79.9 % (42-78); TOTAL CELLS COUNTED % (AUTO) 100 %; WHITE BLOOD COUNT 9.3 10^3/uL (4.0-10.5)
[2020-06-26 05:19] LABS: ALBUMIN 3.1 g/dL (3.5-5.0); ALKALINE PHOSPHATASE 86 U/L (38-126); ANION GAP 14 (5-19); ASPARTATE AMINO TRANSFERASE 214 U/L (17-59); BILIRUBIN,DIRECT 0.5 mg/dL (0.0-0.4); BILIRUBIN,TOTAL 0.6 mg/dL (0.2-1.3); CALCIUM 8.1 mg/dL (8.4-10.2); CARBON DIOXIDE 19 mmol/L (22-30); CHLORIDE 114 mmol/L (98-107); GLUCOSE 121 mg/dL (75-110); POTASSIUM 4.1 mmol/L (3.6-5.0); TOTAL PROTEIN 6.3 g/dL (6.3-8.2)
[2020-06-26] MEDS: PANTOPRAZOLE SODIUM 40 MG TABLET.DR PO SCH (05:28)
[2020-06-26 05:31] LABS: BLOOD UREA NITROGEN 67 mg/dL (7-20)
[2020-06-26] MEDS ORDERED: DIGOXIN INJ 0.5 MG/2 ML AMPULE IV ONE ×2 (07:59→16:16)
[2020-06-26] MEDS ORDERED: REMDESIVIR (EUA) 100 MG in NORMAL SALINE 250 ML IV SCH ×2 (10:00→22:00)
[2020-06-26] MEDS: DEXAMETHASONE SOD PHOS INJ 10 MG/1 ML VIAL IV SCH (10:53)
[2020-06-26] MEDS: ASCORBIC ACID 500 MG TABLET PO SCH ×2 (10:56→18:41)
[2020-06-26] MEDS: ENOXAPARIN SODIUM INJ 100 MG/1 ML DISP.SYRIN SUBCUT SCH (10:56)
[2020-06-26] MEDS: ZINC SULFATE 220 MG CAPSULE PO SCH (10:57)
[2020-06-26] MEDS: CHOLECALCIFEROL (D3) 400 UNIT TABLET PO SCH (10:57)
--- NOTE | 2020-06-26 12:45 | PDOC PROGRESS REPORT ---
Subjective Progress Note for:: 06/26/20 Subjective:: Patient is an 85-year-old male with past medical history of hypertension hyperlipidemia depression and GERD who was admitted on June 22 with chief complaints of confusion fatigue and multiple episodes of diarrhea. Chest x-ray showed pneumonia and mild pulmonary edema. Patient was started on ceftriaxone and azithromycin for pneumonia. Fluids for the diarrhea. COVID testing was sent. D2 06/23/20-he continues to require oxygen via nasal cannula 3 L/min. Noted to be confused and agitated at times. Was doing well on minimal oxygen support D3 06/24/20 -patient was seen and examined at bedside. COVID test came back positive .According to the nurse he requires more oxygen today. He was changed to partial nonrebreather mask 14 L/min saturating 94%. He was noted to be on atrial fibrillation RVR, prior history of atrial fibrillation. He was started on dexamethasone 6 mg IV, as well as Remdesivir. Spoke to the and daughter Tasha [phone]. Updated them about the patients status and poor prognosis. The is the surrogate decision maker and they stated that for now they want him to remain full code but also stated that they do not want him to suffer if with no chance of recovery. D4 06/25/20 - Patient was seen and examined at bedside. He is noted to be more tachypneic and desaturating on 100% BIPAP. He was able to prone initially with improvement of saturation but would desaturate again after a few hours. He continued to be tachycardic despite cardizem drip which was eventually stopped due to hypotension. Repeat CXR showed progression of bilateral infiltrates. Dr. Garcia saw him and recommend to continue current management and avoid fluid overload. I discussed his condition and prognosis with his steff and daughter tasha. I stated that he would need intubation and mechanical ventilation soon and that his prognosis is poor. They stated that they do not want him to suffer and do not want him intubated or resuscitated if he has cardiac arrest. They however want to continue current treatments with remesivir, o2 support. D5 06/26/20 - Patient was seen and examined at baseline. He is proned on 100% BIPAP saturating 82%. Minimally responsive. Off cardizem due to hypotension, still tachycardic. His ANYA has progressed to acute kidney failure with creatinine of 3 and decreased urine output. I was able to update his daughter Tasha and his Steff over the phone. I updated them on how he is doing and reconfirmed that they don't want any further escalation of care besides what he is receiving. they are aware of the patients poor prognosis. Reason For Visit: SEPSIS,COVID PUI Physical Exam Vital Signs: Temp Pulse Resp BP Pulse Ox 98.4 F 121 H 24 H 102/48 L 82 L 06/26/20 08:33 06/26/20 08:45 06/26/20 08:45 06/26/20 08:33 06/26/20 08:45 Pulse Oximeter Continuous Start: 06/22/20 14:12 Freq: RTQ4 Status: Complete Protocol: Document 06/24/20 22:05 LDI (Rec: 06/24/20 22:09 LDI [id number]) Additional RT Notes Other Pt monitored at nursuing station. Pulse Oximetry Assessment Oxygen Saturation (92-100) 91 Oxygen Delivery Method Bi-pap Fraction of Inspired Oxygen (FIO2) 100 Equipment Usage Equipment Standby Continuous SpO2 Machine # XX Intake & Output 06/25/20 06/26/20 06/27/20 06:59 06:59 06:59 Intake Total 730 0 0 Output Total 2600 425 Balance -1870 -425 0 Weight 100 kg 101.4 kg General appearance: PRESENT: hard of hearing, severe distress, other - on bipap, minimally responsive Head exam: PRESENT: normocephalic Eye exam: PRESENT: EOMI, PERRLA Ear exam: PRESENT: normal external ear exam Mouth exam: PRESENT: dry mucosa Neck exam: PRESENT: full ROM. ABSENT: JVD Respiratory exam: PRESENT: crackles, rales, symmetrical, tachypnea Cardiovascular exam: PRESENT: +S1, +S2, tachycardia. ABSENT: diastolic murmur, systolic murmur Pulses: PRESENT: +2 pedal pulses bilateral GI/Abdominal exam: PRESENT: diminished bowel sounds, soft. ABSENT: guarding, tenderness Rectal exam: PRESENT: deferred Extremities exam: PRESENT: +1 edema Musculoskeletal exam: PRESENT: full ROM Neurological exam: PRESENT: other - drowsy, lethargic Results Laboratory Results: 06/26/20 04:11 06/26/20 04:11 06/26/20 06/26/20 04:11 04:11 WBC 9.3 RBC 4.70 Hgb 15.1 Hct 42.7 MCV 91 MCH 32.1 MCHC 35.3 RDW 13.9 Plt Count 184 Seg Neutrophils % 79.9 H Sodium 147.4 H Potassium 4.1 Chloride 114 H Carbon Dioxide 19 L Anion Gap 14 BUN 67 H D Creatinine 3.01 H Est GFR ( Amer) 24 L Glucose 121 H Calcium 8.1 L Total Bilirubin 0.6 AST 214 H Alkaline Phosphatase 86 Total Protein 6.3 Albumin 3.1 L 06/22/20 09:40 Blood Blood Culture (PCR) - Final Staphylococcus Species 06/22/20 09:40 Blood Blood Culture - Final Staphylococcus Epidermidis 06/24/20 04:18 NT-Pro-B Natriuret Pep 2110 H Impressions: Abdomen/Pelvis CT 06/22/20 10:16 IMPRESSION: No acute inflammatory changes in the abdomen or pelvis. Colonic diverticulosis without CT evidence of diverticulitis Patchy areas of consolidation at the lung bases which could represent atelectasis, infection, or aspiration. Chest X-Ray 06/25/20 00:00 IMPRESSION: Increased diffuse bilateral alveolar opacities. Differential considerations include pulmonary edema, ARDS and multifocal pneumonia. Assessment and Plan - Diagnosis (1) Acute respiratory failure with hypoxia Is this a current diagnosis for this admission?: Yes Plan: - worsening respiratory status. desaturating in BIPAP 100% FIO2 - repeat CXR diffuse bilateral alveolar opacities - PO2 53.8% on ABG 100% FIO2 bipap - spoke to family (surrogate) and daughter who opted for DNR/DNI - code status changed - continue O2 support via bipap - prone as needed - continue neb treatments - high risk of mortality - no further escalation of care (2) Pneumonia due to COVID-19 virus Is this a current diagnosis for this admission?: Yes Plan: - COVID positive - progression of bilateral lung infiltrates with increasing O2 needs - hypoxemia on ABG - CRP, Ferritin elevated - continue Remdesivir d2, dexamethasone D3 - continue O2 support via bipap (3) New onset atrial fibrillation Is this a current diagnosis for this admission?: Yes Plan: -New onset A. fib and RVR noted, heart rate 150s -EKG showed atrial fibrillation, prior history, has a history of stroke -[id number] 3 -on therapeutic Lovenox -TSH normal, echo pending -initially on cardizem drip with good HR control but currently on hold due to hypotension -s/p 1 dose digoxin for tachycardia (4) Bilateral pneumonia Qualifiers: Pneumonia type: due to unspecified organism Lung location: lower lobe of lung Qualified Code(s): J18.9 - Pneumonia, unspecified organism Is this a current diagnosis for this admission?: Yes Plan: -COVID positive - legionella negative, blood cx no growth x 72 hrs - stopped rocephin and azithro - continue remdesivir and dexa - O2 support via bipap (5) ANYA (acute kidney injury) Is this a current diagnosis for this admission?: Yes Plan: - crea 1.71>1.89>3.0 in the setting of COVID 19 - minimal urine output - HD not indicated as family wants no further escalation of care - will not treat with IV fluids given bilateral infiltrates - continue to monitor with daily CMP (6) Sepsis Qualifiers: Sepsis type: sepsis due to unspecified organism Sepsis acute organ dysfunction status: with acute organ dysfunction Severe sepsis acute organ dysfunction type: acute renal failure Severe sepsis shock status: without septic shock Is this a current diagnosis for this admission?: Yes Plan: -+ve COVID 19 as source of sepsis - tachypnea 40, Tachycardia. - blood culture negative x 3 - legionella negative - abx discontinued - on remdesivir and dexamethasone - poor prognosis in light of co morbidities (7) Acute metabolic encephalopathy Is this a current diagnosis for this admission?: Yes Plan: - likely 2/2 age, hypoxia and ongoing infection - o2 support - continue to monitor. (8) Diarrhea Qualifiers: Diarrhea type: unspecified type Qualified Code(s): R19.7 - Diarrhea, unspecified Is this a current diagnosis for this admission?: Yes Plan: - still with diarrhea - likely 2/2 COVID - crea 1.58>1.54 - C.diff negative - will hold off IV fluids for now and monitor crea (9) Hyperlipemia Is this a current diagnosis for this admission?: Yes Plan: Cardiac diet. Continue home dose statin therapy. (10) Elevated brain natriuretic peptide (BNP) level Is this a current diagnosis for this admission?: Yes Plan: - BNP 2110, no prior hx of CHF but with HTN, HLD - CXR showing bilateral infilatrates - ddx. CHF vs fluid overload - given 1 dose of lasix - continue to monitor (11) Hypertension Is this a current diagnosis for this admission?: Yes - Plan Summary Summary: Patient is currently saturating 82% on 100% FiO2 BiPAP, also noted to have acute kidney failure today with decreased urine output. CODE STATUS was changed to DNR/DNI yesterday after speaking to his daughter Tasha and Steff. They are okay continuing current management but does not want further escalation of care. - Time Time Spent with patient: 35 or more minutes Medications reviewed and adjusted accordingly: Yes Anticipated Discharge Disposition: To be determined Anticipated Discharge Timeframe: To be determined
[2020-06-26] MEDS ORDERED: DIGOXIN INJ 0.5 MG/2 ML AMPULE ONE (16:19)
[2020-06-26] MEDS ORDERED: METOPROLOL TARTRATE PF/INJ 5 MG/5 ML SDV IV ONE (18:30)
[2020-06-26] MEDS: ATORVASTATIN CALCIUM 40 MG TABLET PO SCH (22:04)
[2020-06-26] MEDS: MELATONIN 3 MG TABLET PO SCH (22:04)
[2020-06-26] MEDS: ASPIRIN 81 MG TABLET, ENT COATED PO SCH (22:04)
[2020-06-26 22:56] VITALS: BP 94/78
[2020-06-27] MEDS: METOPROLOL TARTRATE PF/INJ 5 MG/5 ML SDV IV PRN (00:40)
[2020-06-27] MEDS: ALBUTEROL SULFATE 0.083% NEB 2.5 MG/3 ML AMPUL NEB SCH (00:50)
[2020-06-27] MEDS: MORPHINE SULFATE 10 MG/ML INJ IV PRN (01:40)
[2020-06-27] MEDS: PANTOPRAZOLE SODIUM 40 MG TABLET.DR PO SCH (06:04)
--- NOTE | 2020-06-30 18:56 | Death Summary ---
Summary Date : 06/27/20 Autopsy: No Resuscitation Status: Do Not Resuscitate - Final Diagnosis (1) Acute respiratory failure with hypoxia Is this a current diagnosis for this admission?: Yes (2) Pneumonia due to COVID-19 virus Is this a current diagnosis for this admission?: Yes (3) New onset atrial fibrillation Is this a current diagnosis for this admission?: Yes (4) Bilateral pneumonia Is this a current diagnosis for this admission?: Yes (5) ANYA (acute kidney injury) Is this a current diagnosis for this admission?: Yes (6) Sepsis Is this a current diagnosis for this admission?: Yes (7) Acute metabolic encephalopathy Is this a current diagnosis for this admission?: Yes (8) Diarrhea Is this a current diagnosis for this admission?: Yes (9) Hyperlipemia Is this a current diagnosis for this admission?: Yes (10) Elevated brain natriuretic peptide (BNP) level Is this a current diagnosis for this admission?: Yes (11) Hypertension Is this a current diagnosis for this admission?: Yes Hospital Course:: Patient is an 85-year-old male with past medical history of hypertension hyperlipidemia depression and GERD who was admitted on June 22 with chief complaints of confusion fatigue and multiple episodes of diarrhea. Chest x-ray showed pneumonia and mild pulmonary edema. Patient was started on ceftriaxone and azithromycin for pneumonia. Fluids for the diarrhea. COVID testing was sent. D2 06/23/20-he continues to require oxygen via nasal cannula 3 L/min. Noted to be confused and agitated at times. Was doing well on minimal oxygen support D3 06/24/20 -patient was seen and examined at bedside. COVID test came back positive .According to the nurse he requires more oxygen today. He was changed to partial nonrebreather mask 14 L/min saturating 94%. He was noted to be on atrial fibrillation RVR, prior history of atrial fibrillation. He was started on dexamethasone 6 mg IV, as well as Remdesivir. Spoke to the and daughter Tasha [phone]. Updated them about the patients status and poor prognosis. The is the surrogate decision maker and they stated that for now they want him to remain full code but also stated that they do not want him to suffer if with no chance of recovery. D4 06/25/20 - Patient was seen and examined at bedside. He is noted to be more tachypneic and desaturating on 100% BIPAP. He was able to prone initially with improvement of saturation but would desaturate again after a few hours. He continued to be tachycardic despite cardizem drip which was eventually stopped due to hypotension. Repeat CXR showed progression of bilateral infiltrates. Dr. Garcia saw him and recommend to continue current management and avoid fluid overload. I discussed his condition and prognosis with his steff and daughter tasha. I stated that he would need intubation and mechanical ventilation soon and that his prognosis is poor. They stated that they do not want him to suffer and do not want him intubated or resuscitated if he has cardiac arrest. They however want to continue current treatments with remesivir, o2 support. D5 06/26/20 - Patient was seen and examined at baseline. He is proned on 100% BIPAP saturating 82%. Minimally responsive. Off cardizem due to hypotension, still tachycardic. His ANYA has progressed to acute kidney failure with creatinine of 3 and decreased urine output. I was able to update his daughter Tasha and his Steff over the phone. I updated them on how he is doing and reconfirmed that they don't want any further escalation of care besides what he is receiving. they are aware of the patients poor prognosis. D6 06/27/20. 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 No resuscitation done. He was DNR/DNI. Patient pronounced by Dr. Mcnamara.
== END 2020-06-27 02:45 | DRG 871 ==
LOC: ER 09:37 → EH 13:35 → 3N 16:55
PROVIDERS: ADMIT Internal Medicine; ATTEND Internal Medicine
PROC: XW033E5 Introduction of Remdesivir Anti-infective into Peripheral Vein, Percutaneous Approach, New Technology Group 5 (ICD-10-PCS; principal; 2020-06-26)
DX: A41.89 Other specified sepsis (principal); U07.1 COVID-19; J12.89 Other viral pneumonia; G93.41 Metabolic encephalopathy; J96.01 Acute respiratory failure with hypoxia; N17.9 Acute kidney failure, unspecified; R65.20 Severe sepsis without septic shock; I46.9 Cardiac arrest, cause unspecified; Z66 Do not resuscitate; I48.0 Paroxysmal atrial fibrillation; R41.82 Altered mental status, unspecified; I10 Essential (primary) hypertension; K21.9 Gastro-esophageal reflux disease without esophagitis; E78.5 Hyperlipidemia, unspecified; R19.7 Diarrhea, unspecified; Z79.82 Long term (current) use of aspirin; Z79.899 Other long term (current) drug therapy
CPT/HCPCS: 36415; 36600; 71045; 74177; 80048; 80053; 81001; 82728; 82803; 82962; 83605; 83615; 83735; 83880; 84443; 85025; 85027; 85379; 85610; 86140; 87040; 87045; 87077; 87086; 87150; 87186; 87205; 87324; 87449; 87635; 93005; 93010; 94640; 94660; 96361; 96374; 99285; C9803; J0456; J0696; J1100; J1160; J1650; J1940; J2270; J3490; J7030; J7050; J7060; J7120; J7613